=== PATIENT | female | born 2000 | race African-American/Black ===

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

== ENCOUNTER 2024-01-12 01:58 | Inpatient (IN) ==
[2024-01-12] MEDS ORDERED: ACETAMINOPHEN 325 MG TAB PO PRN (02:13)
[2024-01-12] MEDS ORDERED: OXYTOCIN 30 UNITS/NSS 30 UNITS/500 ML BAG IV PRN (02:13)
[2024-01-12] MEDS ORDERED: LIDOCAINE 1% LOCAL 20 ML VIAL INFIL PRN (02:13)
--- NOTE | 2024-01-12 02:38 | History & Physical Report ---
Date of Service January 12, 2024 Assessment & Plan (1) Spontaneous rupture of amniotic membranes: Plan: 23-year-old G1, P0 at 40 weeks and 6 days of gestation presenting today with spontaneous rupture of membranes at 00 :45 AM, vital signs stable afebrile, heart rate reassuring, GBS positive, Cervix unfavorable, Having spontaneous regular contractions, Discussed options of expectant management with ambulation, p.o. Cytotec versus IV oxytocin in details. Patient desires to ambulate now and then take Cytotec p.o., Discussed pain management options patient does not want epidural for now but she will decide as labor progresses, All questions were answered (2) Positive GBS test: Admission and Anticipated Discharge Date Admission Date: January 12, 2024 History of Present Illness Chief Complaint: Leakage of fluid Primary Care Provider: Nicolette Trevino MD Patient is a 23-year-old G1, P0 at 40 weeks and 6 days of gestation who woke up at 00 40 5 AM with a gush of leakage of fluid. It has been clear and she has been leaking more over time. She denies vaginal bleeding, contractions, abdominal pain, fever chills, nausea vomiting. She reports good movements. She has been feeling irregular bruxing contractions but they are not painful. Her has been uncomplicated except GBS positive, had COVID 19 around 35 weeks, recovered well with no complications. Allergies Allergy/AdvReac Type Severity Reaction Status Date / Time No Known Allergies Allergy Unverified 01/12/24 02:31 Home Medications Medication Instructions Recorded Confirmed Type 1 tab PO DAILY 12/01/23 01/12/24 History iron 1 tab PO DAILY 12/01/23 01/12/24 History Patient History Medical History Anemia affecting Surgical History History of kidney surgery Social History Smoking Status: Never smoker Hx Alcohol Use: No Hx Substance Use: No Preferred Language: Eritrean Outplacement Consultant Required: No Beliefs That Will Affect Care: None Current Living Situation: Spouse Feels Safe at Home: 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 of genital herpes, chlamydia, gonorrhea Review of Systems All systems reviewed & are unremarkable except as noted in HPI & below Physical Exam Constitutional: WD/WN, vitals as above well developed, well nourished and comfortable Gastrointestinal (Abdomen): normal bowel sounds, soft, nontender, no hepato splenomegaly ( gravid) Genitourinary: normal external appearance Speculum/Bimanual Exam: normal appearance of the cervix ( grossly leaking amniotic fluid with lanugo) OB Exam Abdomen: + vertex Manual OB Exam: + cervical dilation 1 cm, + cervical effacement 10% and + station -2 ( engaged) Monitoring External Monitor heart rate category 1, toco shows irregular contractions every 2 to 7 minutes, patient does not feel them.
[2024-01-12] MEDS ORDERED: BUTORPHANOL TARTRATE 2 MG/ML VIAL IV PRN (02:46)
[2024-01-12 02:52] LABS: Hematocrit (blood only) 36.1 % (37.0-47.0); Hemoglobin 12.5 g/dl (12.0-16.0); Mean Corpuscular Hgb Conc 34.6 g/dL (32.0-36.0); Mean Corpuscular Volume 86.6 fL (80.0-100.0); Mean Platelet Volume 11.2 fL (9.4-12.4); Platelet Count 207 K/uL (130-400); RDW Coefficient of Variation 13.2 % (11.5-14.5); RDW Standard Deviation 41.6 fL (36.4-46.3); Red Blood Count 4.17 M/uL (4.20-5.40); White Blood Count 11.32 K/ul (4.8-10.8)
[2024-01-12] MEDS: PENICILLIN GK 6 MU in DEXTROSE 5% 250 ML IV STA (03:05)
[2024-01-12] MEDS: LACTATED RINGER'S 1,000 ML IV PRN (03:07)
[2024-01-12] MEDS: miSOPROStoL 50 MCG TAB PO ONE (05:10)
--- OUTSIDE RECORDS SUMMARY | 2024-01-12 07:25 | External Medical Summary | Summary of Care ---
Author Name Unknown Organization [facility] Address [address] [facility] [place] [address] Phone [phone] Care Team Providers Care Merchandise Carrier Name Role Phone Nicolette Trevino MD Primary Care Provider [phone] Reason for Visit * Reason Comments Return Visit Encounter Details Date Type Department Care Team (Late st Contact Info) Description 12/26/2023 1:15 PM EDT Office Visit Gynecology/Obstetric s Dudley Machado [address] [place] [address] Ruthy Zaldivar PA-C [address] [place] [id number] Supervision of normal first , antepartum*; Antepartum anemia complicating Allergies No known active allergiesdocumented as of this encounter (statuses as of 12/26/2023) Medications Medication Sig Dispensed Refills Start Date End Date Status 27-0.8 MG Oral Tablet Take 1 Tablet by mouth daily at noon. Active Ferrous Sulfate 325 (65 Fe) MG Oral Tablet (Feosol)Indications:An tepartum anemia complicating Take 1 Tablet by mouth every evening. 60 Tablet 1 10/19/2023 Active documented as of this encounter (statuses as of 12/26/2023) Active Problems Problem Noted Date Diagnosed Date Antepartum anemia complicating 024 Overview: Hgb 11.2, Ferritin 16 at 28 weeks Ferrous sulfate 325 mg daily started Supervision of normal first , antepartu m 05/26/2023 Other constipation 08/13/2022 Family history of Down syndrome 02/03/2022 Overview: sister History of nephrotic syndrome Overview: Bx Age 10, follow [facility] Dr. Elkins-Lady and Dr. Irwin-remission since 2013 Estimated Date of Delivery Comme nts Yes 01/06/2024 Based on Ultraso und documented as of this encounter (statuses as of 12/26/2023) Resolved Problems Problem Noted Date Diagnosed Date Resolved Date Oral contraceptive use 02/21/201806/23 documented as of this encounter (statuses as of 12/26/2023) Immunizations Name Administration Dates Next Due COVID-19 mRNA, LNP-s, No Pre serve, 2-Dose Series (Moderna) 10/24/2020,09/27/2020 DTaP Dipth/Tet/Acell Pertussis (Infanrix), Peds 01/17/2004,01/16/2001,1999,09/06,1999 HIB PRP-T, 4 Dose, PF, IM (Hiberix) 09/18,1999,1999,07/08 HPV Vaccine, 9-Valent 05/03/2018,09/12/2017,06/21 Hepatitis B, 0-19 yrs 03/11/2000,1999,09/18 IPV - Polio Virus Vaccine (Inact) 2003,1999,1999,07/08 MMR - Measles/Mumps/Rubella Vaccine 01/17/2004,1 1999 Meningococcal Conjugate Vacc ine (Menactra/Menveo) 05/27/2016 Pneumococcal Conjugate Vacc, 13 Valent (Prevnar) 05/06/2014,10/06/2000 Pneumococcal Polysaccharide PPV23 (Pneumovax) 07/08/2014 Seasonal Influenza Virus Vac cine, Unspecified Formulation 03/23/2018,04/25/2017,05/27/2016,05/06 Seasonal Influenza, PF, 6 M & above, IM , (FluLaval or Fluzone) 05/26/2023,04/14/2021,04/25/2019,03/23,04/25/2017 Seasonal Influenza, Quadriva lent, No Preserve, IM 05/27/2016 Seasonal Influenza, Split, I IV3, With Preserve, Inj 05/06/2014 TDAP (age 10 and older)(Boostrix) 10/17/2023, Varicella Vaccine (Chicken Pox) 05/05/2015,06/06 documented as of this encounter Social History Tobacco Use Types Packs/Day Years Used Date Smoking Tobacco: Never Smokeless Tobacco: Never Alcohol Use Standard Drinks/Week Comments No 0 (1 standard drink = 0.6 oz pur e alcohol) denies PHQ-2 Answer Date Recorded PHQ Adult Total Score 0 10/17/2023 Hunger Vital Sign Answer Date Recorded Within the past 12 months, y ou worried that your food would run out before you got the money to buy more. Never true 08/08/19 24 Within the past 12 months, t he food you bought just didn't last and you didn't have money to get more. Never true 08/08/2023 [place] Depression Scale Answer Date Recorded [place] Depression Scale Total 5 10/17/2023 The thought of harming myself has occurred to me . Never 10/17/2023 Childcare Answer Date Recorded Do you feel overwhelmed with taking care of a child, family member or friend? No 08/08/2023 Does your family need help f inding childcare? (Household - for ages 0-17 years) Not on file 08/08/2023 Clothing Answer Date Recorded Have you been unable to get clothing when it was really needed? No 08/08/2023 Is your family able to get c lothes or diapers when needed? (Household - for ages 0-17 years) Not on file 08/08/2023 Personal Safety Answer Date Recorded Do you feel unsafe or have concerns for your saf ety? No 08/08/2023 Do you have concerns for you r family's safety? (Household - for ages 0-17 years) Not on file 08/08/2023 Utilities Answer Date Recorded Do you have trouble paying y our heating, water, or electric bill? No 08/08/2023 Is your family able to pay t he heat, water, or electric bill? (Household - for ages 0-17 years) Not on file 08/08/2023 Does your family have access to good internet? (Household - for ages 0-17 years) Not on file 08/08/2023 Employment Status Answer Date Recorded Are you unemployed or without regular income? No 08/08/2023 Does the household have a re gular source of income? (Household - for ages 0-17 years) Not on file 08/08/2023 Social Connections Answer Date Recorded How often do you feel lonely or isolated from th ose around you? Never 08/08/2023 Financial Resource Strain Answer Date R ecorded Do you have any trouble payi ng for your medications, or do you think you might in the future? No 08/08/2023 Does your family have troubl e paying for medicine? (Household - for ages 0-17 years) Not on file 08/08/2023 Transportation Needs Answer Date Record ed READ ONLY Do you have troubl e getting a ride to medical visits or work? Never True 08/08/2023 Does your family have a hard time getting a ride to doctors visits? (Household - for ages 0-17 years) Not on file 08/08/2023 Has lack of transportation k ept you from medical appointments, meetings, work, or from getting things needed for daily living? Check all that apply. (Adult - for ages 18 years and over) Not on file 08/08/2023 Do you (or your family) have trouble finding or paying for a ride (transportation)? (Household - for ages 0-17 years) Not on file 08/08/2023 Housing Stability Answer Date Recorded Do you currently live in a s helter or have no steady place to sleep at night? No 08/08/2023 READ ONLY Do you think you a re at risk of becoming homeless? No 08/08/2023 Does your family worry about paying for your home or becoming homeless? (Household - for ages 0-17 years) Not on file 0 08/08/2023 Are you homeless or worried that you might be in the future? (Adult - for ages 18 years and over) Not on file Are you (or your family) tereza eless or worried that you might be in the future? (Household - for ages 0-17 years) Not on file Food Insecurity Answer Date Recorded Do you need food for this week? No 08/08/2023 Are you able to get enough f ood for your family? (Household - for ages 0-17 years) Not on file 08/08/2023 Does your family need food t his week? (Household - for ages 0-17 years) Not on file 08/08/2023 Do you always have enough fo od for your family? (Household - for ages 0-17 years) Not on file 08/08/2023 Estimated Date of Delivery Comme nts Yes 01/06/2024 Based on Ultraso und Sex and Gender Information Value Date Recorded Sex Assigned at Female 05/10/2023 10:45 AM EST Gender Identity Female 05/10/2023 10:45 AM EST Sexual Orientation Straight 05/10/2023 10 :45 AM EST Job Start Date Occupation Industry Not on file Not on file Not on file documented as of this encounter Last Filed Vital Signs Vital Sign Reading Time Taken Comments Blood Pressure 104/56 12/26/2023 1:15 PM EDT Pulse - - Temperature - - Respiratory Rate - - Oxygen Saturation - - Inhaled Oxygen Concentration - - Weight 79.8 kg (176 lb) 12/26/2023 1:15 PM EDT Height - - Body Mass Index 32.19 12/19/2023 3:35 PM EDT documented in this encounter Progress Notes * Ruthy Zaldivar PA-C - 12/26/2023 1:25 PM EDT 38w3d Here for acute visit concern for ROM. Was having some BH contractions and menstrual cramping, intermittent without timing, regularity. Got up to use restroom at 1 AM, after doing so felt fluid into underwear. Did not soak through to pants, not wearing pad. Smelled it and did not have odor of urine.Went back to bed, got up to use restroom again at 6 AM and had same clear discharge into underwear after going to restroom. Put pad down and dinora-pad not soaked. Denies VB. Baby is active. No recent intercourse. [place] gush and then trickling. Pelvic exam: External genitalia and vagina anatomy within normal limits, No significant vulvar lesions, white vaginal discharge present, appears physiologic, Cervix normal in appearance without lesions or purulent discharge, cervix visually closed, no pooling at cervical os and no blood in vaginal vault. Nitrazine test negative. No lof with valsalva. ROM plus collected. BME: cervix closed/thick Low suspicion for ROM, ROM plus collected -- negative, pt made aware Pt interested in scheduling postdate IOL, scheduled 01/11 Labor precautions reviewed RTC in 1 week Ruthy Zaldivar PA-C * Sharon Coronel MED ASSIST - 12/26/2023 1:15 PM EDT 38w3d Denies vaginal bleeding + movements + nausea Patient present today to r/o rupture. documented in this encounter Plan of Treatment Upcoming Encounters Date Type Department Care Team (Late st Contact Info) Description 01/06/2024 1:30 PM EDT Office Visit Gynecology/Obstetrics Dud[facility] Machado [address] [place] [address] Saumya Shaikh CRNP [address] [place] [address] Health Maintenance Due Date Last Done Comments Pneumococcal Vaccine: Pediat rics (0 to 5 Years) and At-Risk Patients (6 to 64 Years) (2 of 2 - PPSV23 or PCV20) 07/08/2019 07/08/2014, 05/06/2014, 10/06/2000 COVID-19 Vaccine (4 - 2022-2 4 season) 2023 12/17/2020, 10/24/2020, 09/27/2020 Influenza Vaccine (FLU shot) (#1) 2024 05/26/2023, 04/14/2021, 04/25/2019, Additional history exists Gonorrhea / Chlamydia Screen 05/26/202412/2022, 02/03/2022, 10/16/2020, Additional history exists Depression Screening 10/16/2024 10/17/2023 Pap Smear 01/24/2026 01/24/2023, 01/18, 10/16/2020 DTaP,Tdap,and Td Vaccines (8 - Td or Tdap) 10/16/2033 10/17/2023, 05/05/2015, 01/17/2004, Additional history exists Hepatitis B Vaccine Completed 03/11/2000, 1999, 1999 MENINGOCOCCAL (MENACTRA/MENVEO) Completed 6 HPV (Gardasil) Vaccine Completed 8, 09/12/2017, 07/13/2017 documented as of this encounter Medical Devices Not on filedocumented as of this encounter Procedures Procedure Name Priority Date/Time Associated Diagnosis Comments RUPTURE OF MEMBRANE STAT 12/26/2023 1:36 PM EDT Supervision of normal first , antepartum documented in this encounter Results * RUPTURE OF MEMBRANE (12/26/2023 1:36 PM EDT) Rupture of Membrane Negative Negative 12/26/2023 1:59 PM EDT [facility] 57-10 Swab Specimen from wound / Unknown 12/26/2023 1:36 PM EDT 12/26/2023 1:36 PM EDT Ruthy Zaldivar PA-C LAB FLUID AND STOOL ORDERABLES [facility] [place] [facility] [facility] [place] [id number] documented in this encounter Visit Diagnoses Diagnosis Supervision of normal first , antepartum- Primary Antepartum anemia complicating Anemia, antepartum documented in this encounter Care Teams Merchandise Carrier Relationship Specialty Start Date End Date Nicolette Trevino MD [address] [facility] [place] [id number] PCP - General Internal Medicine 02/21/18 documented as of this encounter
--- OUTSIDE RECORDS SUMMARY | 2024-01-12 07:25 | External Medical Summary | Summary of Care ---
Author Name Unknown Organization [facility] Address [address] [facility] [place] [address] Phone [phone] Care Team Providers Care Weed Control Inspector Name Role Phone Nicolette Trevino MD Primary Care Provider [phone] Reason for Visit * Reason Comments Return Visit Encounter Details Date Type Department Care Team (Late st Contact Info) Description 12/26/2023 1:15 PM EDT Office Visit Gynecology/Obstetric s Dudley Machado [address] [place] [address] Ruthy Zaldivar PA-C [address] [place] [address] Supervision of normal first , antepartum*; Antepartum [...] nephrotic syndrome Overview: Bx Age 10, follow [facility] [place] Elkins-Lady and Dr. Irwin-remission since 2013 [...] money to get more. Never true 08/08/2023 [place] Depression Scale Answer Date Recorded [place] Depression Scale Total 5 10/17/2023 The thought [...] VB. Baby is active. No recent intercourse. [place] gush and then trickling. Pelvic exam: External [...] Dudley Machado [address] [place] [id number] Saumya Shaikh CRNP [address] [place] [address] Health Maintenance Due Date Last Done Comments [...] STOOL ORDERABLES LAB[facility]AT[facility] [place] [facility] [address] [facility] [place] [address] documented in this encounter Visit Diagnoses Diagnosis Supervision of normal first , antepartum- Primary Antepartum anemia complicating Anemia, antepartum documented in this encounter Care Teams Weed Control Inspector Relationship Specialty Start Date End Date Nicolette Trevino MD [address] [facility] [place] [address] PCP - General Internal Medicine 02/21/18 documented as of this encounter
--- OUTSIDE RECORDS SUMMARY | 2024-01-12 07:25 | External Medical Summary | Summary of Care ---
Author Name Unknown Organization [facility] Address [address] [facility] [place] [address] Phone [phone] Care Team Providers Care Power Shear Operator Name Role Phone Nicolette Trevino MD Primary Care Provider [phone] Reason for Visit * Reason Comments Return Visit Encounter Details Date Type Department Care Team (Late st Contact Info) Description 01/06/2024 1:30 PM EDT Office Visit Gynecology/Obstetric s Dudley Machado [address] [place] [address] Saumya Shaikh CRNP [address] [place] [address] Supervision of normal first , antepartum*; Antepartum anemia complicating Allergies No known active allergiesdocumented as of this encounter (statuses as of 01/06/2024) Medications Medication Sig Dispensed Refills Start Date End Date Status 27-0.8 MG Oral Tablet Take 1 Tablet by mouth daily at noon. Active Ferrous Sulfate 325 (65 Fe) MG Oral Tablet (Feosol)Indications:An tepartum anemia complicating Take 1 Tablet by mouth every evening. 60 Tablet 1 10/19/2023 Active documented as of this encounter (statuses as of 01/06/2024) Active Problems Problem Noted Date Diagnosed Date Antepartum anemia complicating 024 Overview: Hgb 11.2, Ferritin 16 at 28 weeks Ferrous sulfate 325 mg daily started Supervision of normal first , antepartu m 05/26/2023 Other constipation 08/13/2022 Family history of Down syndrome 02/03/2022 Overview: sister History of nephrotic syndrome Overview: Bx Age 10, [place] [facility] [place] Elkins[place]Lady and Dr. Irwin-remission since 2013 Estimated Date of Delivery Comme nts Yes 01/06/2024 Based on Ultraso und documented as of this encounter (statuses as of 01/06/2024) Resolved Problems Problem Noted Date Diagnosed Date Resolved Date Oral contraceptive use 02/21/201806/23 documented as of this encounter (statuses as of 01/06/2024) Immunizations Name Administration Dates Next Due COVID-19 mRNA, LNP-s, No Pre serve, 2-Dose Series (Moderna) 10/24/2020,09/27/2020 DTaP Dipth/Tet/Acell Pertussis (Infanrix), Peds 01/17/2004,01/16/2001,1999,09/06,1999 HIB PRP-T, 4 Dose, PF, IM (H iberix, ActHib) 10/06/2000,1999,1999,07/08 HPV Vaccine, 9-Valent 05/03/2018,09/12/2017,06/21 Hepatitis B, 0-19 [...] money to get more. Never true 08/08/2023 [place] Depression Scale Answer Date Recorded [place] Depression Scale Total 5 10/17/2023 The thought [...] Sign Reading Time Taken Comments Blood Pressure 102/60 01/06/2024 1:30 PM EDT Pulse - - Temperature - - Respiratory Rate - - Oxygen Saturation - - Inhaled Oxygen Concentration - - Weight 79.8 kg (176 lb) 01/06/2024 1:30 PM EDT Height 157.5 cm (5' 2") 01/06/2024 1:30 PM EDT Body Mass Index 32.19 01/06/2024 1:30 PM EDT documented in this encounter Progress Notes * Saumya Shaikh CRNP - 01/06/2024 1:37 PM EDT 40w Having irregular contractions for the past 2 days. No bleeding, LOF. Baby is active. IOL 01/11. Heating Fixture Tender Documentation Provider requested fish icer. Name of fish icer: LESLIE Watkins * Anabel Murillo LPN - 01/06/2024 1:30 PM EDT 40w0d Would like cervix check documented in this encounter Plan of Treatment Health Maintenance Due Date Last Done Comments [...] Not on filedocumented as of this encounter Visit Diagnoses Diagnosis Supervision of normal first , antepartum- Primary Antepartum anemia complicating Anemia, antepartum documented in this encounter Care Teams Power Shear Operator Relationship Specialty Start Date End Date Nicolette Trevino MD [address] [place] [address] PCP - General Internal Medicine 02/21/18 documented as of this encounter
--- OUTSIDE RECORDS SUMMARY | 2024-01-12 07:26 | External Medical Summary ---
Author Name Unknown Address Unknown Organization [id number]:[facility] [address] [place] [id number] Laboratory Report Ordering Provider Test Date Status DULCE ADAMS 12/26/2023 13:36:28 Final Observation Date Value Abnormality Reference (Units ) Status Premature Rupture Membrane risk 12/26/2023 13:36:28 Negative Negative Final Performing Location [facility] [address] [place] [id number]
--- OUTSIDE RECORDS SUMMARY | 2024-01-12 07:26 | External Medical Summary | Summary of Care ---
Author Name Unknown Organization [facility] Address [address] [place] [facility] [place] [facility] [place] [address] Phone [phone] Care Team Providers Care Catalyst Impregnator Name Role Phone Nicolette Trevino MD Primary Care Provider [phone] Reason for Visit * Reason Comments Return Visit Encounter Details Date Type Department Care Team (Late st Contact Info) Description 12/12/2023 1:30 PM EDT Office Visit Gynecology/Obstetric s [facility] [address] [facility] [place] [address] Maryan Stanley CNM [address] [facility] [place] [phone] Supervision of normal first , antepartum*; Antepartum anemia complicating Allergies No known active allergiesdocumented as of this encounter (statuses as of 12/12/2023) Medications Medication Sig Dispensed Refills Start Date End Date Status 27-0.8 MG Oral Tablet Take 1 Tablet by mouth daily at noon. Active Ferrous Sulfate 325 (65 Fe) MG Oral Tablet (Feosol)Indications:An tepartum anemia complicating Take 1 Tablet by mouth every evening. 60 Tablet 1 10/19/2023 Active documented as of this encounter (statuses as of 12/12/2023) Active Problems Problem Noted Date Diagnosed Date Antepartum anemia complicating 024 Overview: Hgb 11.2, Ferritin 16 at 28 weeks Ferrous sulfate 325 mg daily started Supervision of normal first , antepartu m 05/26/2023 Other constipation 08/13/2022 Family history of Down syndrome 02/03/2022 Overview: sister History of nephrotic syndrome Overview: Bx Age 10, follow [facility] [place]. Elkins-Lady and Dr. Irwin-remission since 2013 Estimated Date of Delivery Comme nts Yes 01/06/2024 Based on Ultraso und documented as of this encounter (statuses as of 12/12/2023) Resolved Problems Problem Noted Date Diagnosed Date Resolved Date Oral contraceptive use 02/21/201806/23 documented as of this encounter (statuses as of 12/12/2023) Immunizations Name Administration Dates Next Due COVID-19 [...] money to get more. Never true 08/08/2023 [place] Depression Scale Answer Date Recorded [place] Depression Scale Total 5 10/17/2023 The thought [...] Sign Reading Time Taken Comments Blood Pressure 98/58 12/12/2023 12:33 PM EDT Pulse - - Temperature - - Respiratory Rate - - Oxygen Saturation - - Inhaled Oxygen Concentration - - Weight 76.2 kg (168 lb) 12/12/2023 12:33 PM EDT Height - - Body Mass Index 30.73 11/28/2023 11:41 AM EDT documented in this encounter Progress Notes * Maryan Stanley CNM - 12/12/2023 1:30 PM EDT Katya Kruse is a 23 year old female here for her routine OB appointment at 36w3d Her Estimated Date of Delivery: 01/06/24 REVIEW OF SYSTEMS: She affirms movement. Denies vaginal bleeding, LOF, contractions, N/V, headaches Some BH contractions, nothing regular PHYSICAL EXAM: Filed Vitals: 12/12/23 1233 BP: 98/58 Weight: 76.2 kg (168 lb) +FHT 140s Fundal height 37cm ASSESSMENT/PLAN: No diagnosis found. Supervision of - GBS swab collected today Ophthalmic Surgeon Documentation Provider requested key attendant. Name of key attendant: Luisito Mcgregor CNM - hydration encouraged - labor precautions and kick counts reviewed - RTO in 1 week Maryan Stanley CNM * Rosa Monet LPN - 12/12/2023 1:07 PM EDT 36w3d Denies vaginal bleeding/rom + movement Michael salazar US today- vertex No new concerns documented in this encounter Plan of Treatment Upcoming Encounters Date Type Department Care Team (Late st Contact Info) Description 12/19/2023 3:45 PM EDT Office Visit Gynecology/Obstetrics Garciasor[facility] Machado [address] [place] [address] Ruthy Zaldivar PA-C [address] [place] [address] Pending Results Name Type Priority Associated Diagnoses Date /Time GROUP B STREP CULTURE/PCR Lab Routine Supervision of normal first , antepartum 12/12/2023 2:21 PM EDT Health Maintenance Due Date Last Done Comments Pneumococcal Vaccine: Pediat rics (0 to 5 Years) and At-Risk Patients (6 to 64 Years) (2 of 2 - PPSV23 or PCV20) 07/08/2019 07/08/2014, 05/06/2014, 10/06/2000 COVID-19 Vaccine (3 - 2022-2 4 season) 2023 10/24/2020, 09/27/2020 Gonorrhea / Chlamydia Screen 05/26/202412/2022, 02/03/2022, 10/16/2020, Additional history exists Depression Screening 10/16/2024 10/17/2023 Pap Smear 01/24/2026 01/24/2023, 01/18, 10/16/2020 DTaP,Tdap,and Td Vaccines (8 - Td or Tdap) 10/16/2033 10/17/2023, 05/05/2015, 01/17/2004, Additional history exists Hepatitis B Completed 03/11/2000, 10/18, 1999 MENINGOCOCCAL (MENACTRA/MENVEO) Completed 6 GARDASIL-HPV IMMUNIZATION SERIES Completed 05/03/2018, 09/12/2017, 07/13/2017 Influenza Vaccine (FLU shot) Completed 12/2022, 04/14/2021, 04/25/2019, Additional history exists documented as of this encounter Medical Devices Not on filedocumented as of this encounter Visit Diagnoses Diagnosis Supervision of normal first , antepartum- Primary Antepartum anemia complicating Anemia, antepartum documented in this encounter Care Teams Catalyst Impregnator Relationship Specialty Start Date End Date Nicolette Trevino MD [address] [place] [address] PCP - General Internal Medicine 02/21/18 documented as of this encounter
--- OUTSIDE RECORDS SUMMARY | 2024-01-12 07:26 | External Medical Summary | Summary of Care ---
Author Name Unknown Organization [facility] Address [address] [place] [place] [facility] [place] [address] Phone [phone] Care Team Providers Care Pole Lift Operator Name Role Phone Nicolette Trevino MD Primary Care Provider [phone] Reason for Visit * Reason Comments Return Visit Encounter Details Date Type Department Care Team (Late st Contact Info) Description 12/12/2023 1:30 PM EDT Office Visit Gynecology/Obstetric s [facility] [address] [facility] [place] [address] Maryan Stanley CNM [address] [facility] [place] [phone] Supervision of normal first , antepartum*; Antepartum [...] nephrotic syndrome Overview: Bx Age 10, follow [facility] [place]. Elkins-Lady and Dr. Irwin-remission since 2013 [...] money to get more. Never true 08/08/2023 [place] Depression Scale Answer Date Recorded [place] Depression Scale Total 5 10/17/2023 The thought [...] Supervision of - GBS swab collected today Wrist Hemmer Documentation Provider requested relay motorman. Name of relay motorman: Luisito Mcgregor CNM - hydration encouraged - [...] 12/19/2023 3:45 PM EDT Office Visit Gynecology/Obstetrics Dudley Machado [address] [place] [address] Ruthy Zaldviar PA-C [address] [place] [address] Scheduled Orders Name Type Priority Associated Diagnoses Orde r Schedule GROUP B STREP CULTURE/PCR Lab Routine Supervision of normal first , antepartum Ordered: 12/12/2023 Health Maintenance Due Date Last Done Comments [...] Completed 03/11/2000, 10/18, 1999 MENINGOCOCCAL (MENACTRA/MENVEO) Completed GARDASIL-HPV IMMUNIZATION SERIES Completed 05/03/2018, 09/12/2017, 07/13/2017 Influenza Vaccine (FLU shot) Completed 12/2022, 04/14/2021, 04/25/2019, Additional history exists documented as of this encounter Medical Devices Not on filedocumented as of this encounter Visit Diagnoses Diagnosis Supervision of normal first , antepartum- Primary Antepartum anemia complicating Anemia, antepartum documented in this encounter Care Teams Pole Lift Operator Relationship Specialty Start Date End Date Nicolette Trevino MD [address] [place] [address] PCP - General Internal Medicine 02/21/18 documented as of this encounter
--- OUTSIDE RECORDS SUMMARY | 2024-01-12 07:26 | External Medical Summary ---
Author Name Unknown Address Unknown Organization K01:[facility] [place] - [address] [place] [address] Laboratory Report Ordering Provider Test Date Status ROSAURA HEDRICK 12/12/2023 14:21:57 Final Observation Date Value Abnormality Reference (Units ) Status Streptococcus agalactiae DNA [Presence] in Specimen by MERI with probe detection 12/12/2023 14:21:57 Positive Abnormal Negative Final Group B Streptococcus detect ed by culture-enhanced PCR (amplified probe). GBS GBSCT - [facility] 12/12/2023 14:21:57 23.4 Final GBS SPCCT - [facility] 12/12/2023 14:21:57 0.0 Final Performing Location [facility] [place] - [address] [place] [address]
--- OUTSIDE RECORDS SUMMARY | 2024-01-12 07:26 | External Medical Summary | Summary of Care ---
Author Name Unknown Organization [facility] Address [address] [facility] [place] [address] Phone [phone] Care Team Providers Care Lithographic Retoucher Apprentice Name Role Phone Nicolette Trevino MD Primary Care Provider [phone] Reason for Visit * Reason Comments Return Visit Encounter Details Date Type Department Care Team (Late st Contact Info) Description 12/19/2023 3:45 PM EDT Office Visit Gynecology/Obstetric s Dudley Machado [address] [place] [address] Ruthy Zaldivar PA-C [address] [place] [address] Supervision of normal first , antepartum*; Antepartum anemia complicating Allergies No known active allergiesdocumented as of this encounter (statuses as of 12/19/2023) Medications Medication Sig Dispensed Refills Start Date End Date Status 27-0.8 MG Oral Tablet Take 1 Tablet by mouth daily at noon. Active Ferrous Sulfate 325 (65 Fe) MG Oral Tablet (Feosol)Indications:An tepartum anemia complicating Take 1 Tablet by mouth every evening. 60 Tablet 1 10/19/2023 Active documented as of this encounter (statuses as of 12/19/2023) Active Problems Problem Noted Date Diagnosed Date Antepartum anemia complicating 024 Overview: Hgb 11.2, Ferritin 16 at 28 weeks Ferrous sulfate 325 mg daily started Supervision of normal first , antepartu m 05/26/2023 Other constipation 08/13/2022 Family history of Down syndrome 02/03/2022 Overview: sister History of nephrotic syndrome Overview: Bx Age 10, follow [facility] [place] Dr. Elkins-Lady and Dr. Irwin-remission since 2013 Estimated Date of Delivery Comme nts Yes 01/06/2024 Based on Ultraso und documented as of this encounter (statuses as of 12/19/2023) Resolved Problems Problem Noted Date Diagnosed Date Resolved Date Oral contraceptive use 02/21/201806/23 documented as of this encounter (statuses as of 12/19/2023) Immunizations Name Administration Dates Next Due COVID-19 [...] money to get more. Never true 08/08/2023 [place] Depression Scale Answer Date Recorded [place] Depression Scale Total 5 10/17/2023 The thought [...] Sign Reading Time Taken Comments Blood Pressure 108/64 12/19/2023 3:35 PM EDT Pulse - - Temperature - - Respiratory Rate - - Oxygen Saturation - - Inhaled Oxygen Concentration - - Weight 78.5 kg (173 lb) 12/19/2023 3:35 PM EDT Height 157.5 cm (5' 2") 12/19/2023 3:35 PM EDT Body Mass Index 31.64 12/19/2023 3:35 PM EDT documented in this encounter Progress Notes * Ruthy Zaldivar PA-C - 12/19/2023 4:00 PM EDT 37w3d Without complaints. Getting excited to meet baby! Denies LOF, VB, contractions. Baby is active. Cephalic by ultrasound last week. Reviewed GBS positive and treatment upon labor/delivery. Labor precautions reviewed. Ruthy Zaldivar PA-C documented in this encounter Nursing Notes * Codie Charlton LPN - 12/19/2023 3:51 PM EDT 37w3d Denies concerns documented in this encounter Plan of [...] GARDASIL-HPV IMMUNIZATION SERIES Completed 05/03/2018, 09/12/2017, 07/13/2017 documented as of this encounter Medical Devices Not on filedocumented as of this encounter Visit Diagnoses Diagnosis Supervision of normal first , antepartum- Primary Antepartum anemia complicating Anemia, antepartum documented in this encounter Care Teams Lithographic Retoucher Apprentice Relationship Specialty Start Date End Date Nicolette Trevino MD [address] [place], [place] [address] PCP - General Internal Medicine 02/21/18 documented as of this encounter
[2024-01-12] MEDS: PENICILLIN GK 3 MU in DEXTROSE 5% 100 ML IV PRN (07:34)
--- NOTE | 2024-01-12 09:04 | Labor Progress Brief Note ---
Date of Service January 12, 2024 Assessment & Plan Admission and Anticipated Discharge Date Admission Date: January 12, 2024 Physical Exam Genitourinary: Manual OB Exam: + cervical dilation 1 cm, + cervical effacement 50% and + station -2 OB Exam Monitor Tracing: + external FHT monitor used, + external uterine monitor used, + category I and + normal FHT variability cervix firm/posterior Will give another Cytotec for ripening Results & Data Vital Signs (Past 12 Hours) Vital Signs Temp Pulse Resp BP 01/12/24 07:15 36.7 C 53 L 20 101/64 01/12/24 05:10 36.7 C 01/12/24 02:36 65 108/64 01/12/24 02:32 36.7 C 18
[2024-01-12] MEDS: miSOPROStoL 50 MCG TAB PO STA (09:13)
--- NOTE | 2024-01-12 13:52 | Labor Progress Brief Note ---
Date of Service January 12, 2024 Assessment & Plan Admission and Anticipated Discharge Date Admission Date: January 12, 2024 Physical Exam Genitourinary: Manual OB Exam: + cervical dilation 1 cm and 2 cm, + cervical effacement 70%, + station -2 and + amniotic fluid clear OB Exam Monitor Tracing: + external FHT monitor used, + external uterine monitor used, + category I and + normal FHT variability AROM of forebag with Amni-hook clear fluid Will start Oxytocin to augment contractions Results & Data Vital Signs (Past 12 Hours) Vital Signs Temp Pulse Resp BP 01/12/24 13:45 67 118/57 L 01/12/24 12:33 36.3 C L 01/12/24 10:50 36.9 C 59 L 16 110/55 L 01/12/24 07:15 36.7 C 53 L 20 101/64 01/12/24 05:10 36.7 C 01/12/24 02:36 65 108/64 01/12/24 02:32 36.7 C 18
[2024-01-12] MEDS: OXYTOCIN 30 UNITS/NSS 30 UNITS/500 ML BAG IV PRN (14:06)
[2024-01-12] MEDS: BUPIVACAINE 0.25% PF 30 ML VIAL ONE (16:55)
[2024-01-12] MEDS: SODIUM CHLORIDE 0.9% PF INJ 10 ML VIAL ONE (16:55)
[2024-01-12] MEDS: LIDOCAINE 2%/EPINEPHRINE 1:200,000 20 ML PF ONE (16:55)
[2024-01-12] MEDS: fentANYL 2 MCG/ML BUPIVacaine 0.125%-NSS 100ML BAG ONE (17:01)
[2024-01-12] MEDS ORDERED: diphenhydrAMINE 50 MG/ML VIAL IV PRN (17:09)
[2024-01-12] MEDS ORDERED: ROPIVACAINE 0.5% PF 5 MG/ML 20 ML VIAL EPI PRN (17:09)
[2024-01-12] MEDS ORDERED: ONDANSETRON INJ 2 MG/ML 2 ML VIAL IV PRN (17:09)
[2024-01-12] MEDS ORDERED: BUPIVACAINE 0.25% PF 30 ML VIAL EPI PRN (17:09)
[2024-01-12] MEDS ORDERED: ePHEDrine sulfate 50 MG/ML AMP IV PRN (17:09)
[2024-01-12] MEDS ORDERED: SODIUM CHLORIDE 0.9% PF INJ 10 ML VIAL EPI PRN (17:09)
[2024-01-12] MEDS ORDERED: LIDOCAINE 2% MPF LOCAL 5 ML VIAL EPI PRN (17:09)
[2024-01-12] MEDS ORDERED: NALOXONE HCL 1 MG in SODIUM CHLORIDE 0.9% 1,000 ML IV PRN (17:09)
[2024-01-12] MEDS ORDERED: fentaNYL citrate PF 100 MCG/2 ML VIAL EPI PRN (17:09)
[2024-01-12] MEDS ORDERED: NALBUPHINE HCL 5 MG in SYRINGE 0 ML IV PRN (17:09)
[2024-01-12] MEDS ORDERED: PROMETHAZINE HCL 6.25 MG in SODIUM CHLORIDE 0.9% 50 ML IV PRN (17:09)
[2024-01-12] MEDS ORDERED: NALOXONE HCL 0.4 MG/1 ML VIAL/CARP IV PRN (17:09)
--- NOTE | 2024-01-12 17:09 | Anesthesiology Consultation ---
Date of Service January 12, 2024 Assessment & Plan Chart Review Chart Review: Patient NOT seen in Pre Admission Testing and Acceptable Risk for Labor Epidural Consults Requested none ASA ASA2 Proposed Anesthesia Anesthesia Type: Labor Epidural Risk / Benefits Reviewed With: PT / POA / Parent / Guardian, Accepts Plan and Informed Consent Obtained History Height/Weight Height: 5 ft 2 in Weight: 79.832 kg Allergies Allergy/AdvReac Type Severity Reaction Status Date / Time No Known Allergies Allergy Unverified 01/12/24 02:31 Medications Home Medications Medication Instructions Recorded Confirmed Last Taken 1 tab PO DAILY 12/01/23 01/12/24 11/30/23 19:00 iron 1 tab PO DAILY 12/01/23 01/12/24 11/30/23 09:00 Active Medications Generic Name Dose Route Start Last Admin Trade Name Freq PRN Reason Stop Dose Admin Lactated Ringer's 1,000 mls @ 150 mls/hr 01/12/24 02:13 01/12/24 16:54 Lr IV 01/14/24 02:12 125 mls/hr .Q6H40M PRN Infusion L&D Protocol Protocol Penicillin G Potassium 3 mu/ 106 mls @ 100 mls/hr 01/12/24 05:16 01/12/24 15:09 Dextrose IV 01/22/24 05:15 100 mls/hr Q4H PRN Administration GBS(+) Until Delivery Oxytocin 30 units in 500 mls @ 5 mls/hr 01/12/24 13:52 01/12/24 15:15 Pitocin 30 Units/Nss IV 01/14/24 13:51 0.3 units/hr .Q24H PRN 5 mls/hr Labor Induction/Augmentation Titration Protocol 0.3 UNITS/HR Past Medical History Medical History Anemia affecting Exercise / Class Metabolic Activity II 4-5 Yardwork/Stairs/Walk up hill Past Surgical History Surgical History History of kidney surgery Past Anesthesia History No Hx of Anesthesia Complications and No Family Hx of Anesthesia Complications History of PONV No Hx of PONV and No Hx of Motion Sickness Social History Smoking Status: Never smoker Hx Alcohol Use: No Hx Substance Use: No substance use type: does not use Physical Exam Vital Signs Last Vital Signs Temp 36.8 C 01/12/24 15:30 Pulse 59 L 01/12/24 17:05 Resp 20 01/12/24 15:30 BP 109/59 L 01/12/24 17:04 Pulse Ox 99 01/12/24 17:05 ENMT Mouth: no dentition abnormality Thyromental Distance: > or= 3.5 Finger Breadths Mallampati Class: II Neck normal visual inspection Respiratory normal respiratory effort Auscultation: lungs clear to auscultation bilaterally Cardiovascular Rate/Rhythm: regular rate and regular rhythm Psychiatric Orientation: alert Testing Laboratory Results 01/12/24 02:32
[2024-01-12] MEDS: fentaNYL citrate PF 100 MCG/2 ML VIAL ONE (17:16)
--- NOTE | 2024-01-12 17:27 | Labor Progress Brief Note ---
Date of Service January 12, 2024 Assessment & Plan Admission and Anticipated Discharge Date Admission Date: January 12, 2024 Physical Exam Genitourinary: Manual OB Exam: + cervical dilation 2 cm and 3 cm, + cervical effacement 70%, + station -2 and + amniotic fluid clear OB Exam Monitor Tracing: + external FHT monitor used, + external uterine monitor used, + category I and + normal FHT variability Results & Data Vital Signs (Past 12 Hours) Vital Signs Temp Pulse Resp BP Pulse Ox 01/12/24 17:25 62 100 01/12/24 17:20 64 100 01/12/24 17:17 60 124/54 L 01/12/24 17:15 67 100 01/12/24 17:10 58 L 99 01/12/24 17:05 59 L 99 01/12/24 17:04 60 109/59 L 01/12/24 17:02 54 L 109/56 L 01/12/24 17:00 62 110/56 L 99 01/12/24 16:59 59 L 129/68 01/12/24 16:55 61 100 01/12/24 16:50 61 100 01/12/24 16:45 64 100 01/12/24 16:44 76 122/61 01/12/24 15:30 36.8 C 20 01/12/24 15:14 71 111/59 L 01/12/24 14:59 57 L 125/74 01/12/24 14:45 64 116/64 01/12/24 14:28 61 105/63 01/12/24 14:13 36.8 C 74 20 116/73 01/12/24 13:45 67 118/57 L 01/12/24 12:33 36.3 C L 01/12/24 10:50 36.9 C 59 L 16 110/55 L 01/12/24 07:15 36.7 C 53 L 20 101/64
[2024-01-13] MEDS: fentANYL 2 MCG/ML BUPIVacaine 0.125%-NSS 100ML BAG EPI PRN (02:43)
[2024-01-13] MEDS: CALCIUM CARBONATE 500 MG CHEWABLE TAB PO PRN (03:07)
--- NOTE | 2024-01-13 07:40 | Obstetrical Progress Note ---
Date of Service January 13, 2024 Assessment & Plan Admission and Anticipated Discharge Date Admission Date: January 12, 2024 Subjective Patient is seen and examined Her cervix has not changed per her night nurse She feels well no complaints VSS Afebrile VE; 4-5 cm/ 70%/ -1, coned head, IUPC is placed FHR categ I on IV PCN for GBS Prolonged ROM Will add Clindamycin Continue to monitor closely Increase Oxytocin per contractions pattern Results & Data Vital Signs (Past 12 Hours) Vital Signs Temp Pulse Resp BP Pulse Ox 01/13/24 07:36 63 100 01/13/24 07:31 63 99 01/13/24 07:26 63 99 01/13/24 07:23 61 103/55 L 01/13/24 07:21 64 99 01/13/24 07:16 67 98 01/13/24 07:11 61 100 01/13/24 07:09 36.9 C 67 16 105/54 L 01/13/24 07:06 69 95 01/13/24 07:01 58 L 97 01/13/24 06:56 63 97 01/13/24 06:53 57 L 98/57 L 01/13/24 06:51 60 97 01/13/24 06:46 59 L 99 01/13/24 06:41 60 96 01/13/24 06:39 56 L 101/59 L 01/13/24 06:36 66 98 01/13/24 06:31 58 L 97 01/13/24 06:26 59 L 98 01/13/24 06:23 60 107/59 L 01/13/24 06:21 61 98 01/13/24 06:16 60 97 01/13/24 06:11 59 L 97 01/13/24 06:09 60 102/55 L 01/13/24 06:06 57 L 98 01/13/24 06:01 58 L 98 01/13/24 05:56 80 100 01/13/24 05:54 64 116/77 01/13/24 05:51 81 96 01/13/24 05:46 69 98 01/13/24 05:41 62 97 01/13/24 05:39 60 121/64 01/13/24 05:36 70 98 01/13/24 05:31 69 98 01/13/24 05:26 63 97 01/13/24 05:23 70 120/73 01/13/24 05:21 70 98 01/13/24 05:16 71 98 01/13/24 05:11 71 99 01/13/24 05:10 18 01/13/24 05:10 36.9 C 18 01/13/24 05:09 82 133/74 01/13/24 05:06 90 99 01/13/24 05:01 68 98 01/13/24 04:56 62 97 01/13/24 04:55 69 125/74 01/13/24 04:51 60 97 01/13/24 04:46 59 L 98 01/13/24 04:43 65 91 01/13/24 04:41 65 99 01/13/24 04:39 58 L 122/73 01/13/24 04:36 62 96 01/13/24 04:31 57 L 98 01/13/24 04:30 18 01/13/24 04:30 18 01/13/24 04:26 58 L 98 01/13/24 04:23 61 124/75 01/13/24 04:21 60 98 01/13/24 04:16 60 99 01/13/24 04:11 59 L 97 01/13/24 04:08 58 L 120/72 01/13/24 04:06 74 98 01/13/24 04:01 70 99 01/13/24 04:00 64 18 91 01/13/24 03:56 59 L 100 01/13/24 03:53 59 L 113/68 01/13/24 03:51 70 99 01/13/24 03:46 70 99 01/13/24 03:41 72 99 01/13/24 03:38 76 121/72 01/13/24 03:36 74 100 01/13/24 03:32 91 H 93 01/13/24 03:31 93 H 97 01/13/24 03:26 87 100 01/13/24 03:25 69 121/73 01/13/24 03:21 68 99 01/13/24 03:16 63 100 01/13/24 03:11 76 98 01/13/24 03:09 18 01/13/24 03:09 36.8 C 18 01/13/24 03:08 112 H 133/75 01/13/24 03:06 125 H 100 07/26/24 03:01 70 98 01/13/24 02:56 63 99 01/13/24 02:53 63 114/73 01/13/24 02:51 64 99 01/13/24 02:46 63 100 01/13/24 02:41 100 01/13/24 02:41 63 01/13/24 02:41 66 94 01/13/24 02:39 58 L 123/68 01/13/24 02:36 80 100 01/13/24 02:31 69 99 01/13/24 02:26 69 100 01/13/24 02:24 72 110/63 01/13/24 02:21 66 100 01/13/24 02:16 68 100 01/13/24 02:11 79 99 01/13/24 02:10 93 H 119/77 01/13/24 02:06 71 100 01/13/24 02:01 89 110/65 99 01/13/24 02:00 76 92 01/13/24 01:56 72 100 01/13/24 01:53 66 94 01/13/24 01:51 54 L 97 01/13/24 01:46 56 L 97 01/13/24 01:41 57 L 97 01/13/24 01:38 54 L 101/59 L 01/13/24 01:36 59 L 97 01/13/24 01:31 57 L 97 01/13/24 01:26 56 L 98 01/13/24 01:23 54 L 107/57 L 01/13/24 01:21 60 97 01/13/24 01:15 56 L 98 01/13/24 01:10 56 L 98 01/13/24 01:08 54 L 109/56 L 01/13/24 01:05 69 98 01/13/24 01:03 18 01/13/24 01:03 36.8 C 18 01/13/24 01:00 64 96 01/13/24 00:55 58 L 97 01/13/24 00:53 70 102/55 L 01/13/24 00:50 56 L 97 01/13/24 00:45 59 L 97 01/13/24 00:40 60 96 01/13/24 00:39 55 L 96/53 L 01/13/24 00:35 63 96 01/13/24 00:30 62 96 01/13/24 00:25 63 96 01/13/24 00:23 56 L 107/57 L 01/13/24 00:20 75 93 01/13/24 00:19 73 93 01/13/24 00:15 61 96 01/13/24 00:10 65 96 01/13/24 00:09 55 L 100/55 L 01/13/24 00:05 61 96 01/13/24 00:00 64 96 01/12/24 23:55 63 96 01/12/24 23:54 63 116/61 01/12/24 23:50 62 96 01/12/24 23:45 56 L 96 01/12/24 23:40 56 L 96 01/12/24 23:38 72 106/63 01/12/24 23:35 55 L 96 01/12/24 23:30 58 L 96 01/12/24 23:25 60 97 01/12/24 23:23 58 L 97/60 L 01/12/24 23:20 61 96 01/12/24 23:15 64 96 01/12/24 23:10 66 97 01/12/24 23:08 53 L 107/55 L 01/12/24 23:05 52 L 97 01/12/24 23:00 69 99 01/12/24 22:58 18 01/12/24 22:58 36.8 C 18 01/12/24 22:55 59 L 97 01/12/24 22:54 51 L 106/58 L 01/12/24 22:50 58 L 96 01/12/24 22:45 57 L 97 01/12/24 22:40 55 L 97 01/12/24 22:38 59 L 106/55 L 01/12/24 22:35 59 L 97 01/12/24 22:30 56 L 97 01/12/24 22:25 52 L 97 01/12/24 22:23 53 L 102/53 L 01/12/24 22:20 56 L 99 01/12/24 22:15 53 L 99 01/12/24 22:10 75 97 01/12/24 22:09 48 L 139/72 01/12/24 22:05 50 L 100 01/12/24 22:00 55 L 97 01/12/24 21:55 56 L 96 01/12/24 21:54 51 L 102/59 L 01/12/24 21:50 53 L 97 01/12/24 21:45 53 L 98 01/12/24 21:40 54 L 97 01/12/24 21:38 57 L 105/59 L 93 01/12/24 21:35 54 L 96 01/12/24 21:30 57 L 98 01/12/24 21:25 53 L 97 01/12/24 21:23 54 L 114/58 L 01/12/24 21:20 55 L 97 01/12/24 21:15 59 L 99 01/12/24 21:14 18 01/12/24 21:14 37.1 C 18 01/12/24 21:10 56 L 97 01/12/24 21:09 56 L 107/57 L 01/12/24 21:05 56 L 98 01/12/24 21:00 54 L 98 01/12/24 20:55 53 L 97 01/12/24 20:53 53 L 105/59 L 01/12/24 20:50 51 L 97 01/12/24 20:45 53 L 98 01/12/24 20:40 52 L 97 01/12/24 20:38 53 L 102/57 L 01/12/24 20:35 53 L 98 01/12/24 20:30 53 L 98 01/12/24 20:25 55 L 98 01/12/24 20:23 55 L 108/54 L 01/12/24 20:20 52 L 97 01/12/24 20:15 53 L 96 01/12/24 20:10 51 L 97 01/12/24 20:08 54 L 106/59 L 01/12/24 20:05 52 L 97 01/12/24 20:00 54 L 99 01/12/24 19:55 57 L 98 01/12/24 19:53 52 L 107/59 L 01/12/24 19:50 64 97 01/12/24 19:45 55 L 98 01/12/24 19:40 54 L 97 01/12/24 19:39 54 L 107/58 L
[2024-01-13] MEDS: CLINDAMYCIN/D5W 900 MG/50 ML BAG IV SCH (08:10)
[2024-01-13] MEDS ORDERED: Nursing to Pharmacy Communication SCH (09:00)
[2024-01-13] MEDS ORDERED: OXYTOCIN 30 UNITS/NSS 30 UNITS/500 ML BAG IV PRN (10:04)
[2024-01-13] MEDS: LACTATED RINGER'S 1,000 ML IV ONE (10:10)
--- NOTE | 2024-01-13 15:09 | Obstetrical Progress Note ---
Date of Service January 13, 2024 Assessment & Plan Admission and Anticipated Discharge Date Admission Date: January 12, 2024 Subjective Patient is reevaluated She feels well, no complaints, took rest She has not been having regular contractions with good pattern Pitocin was increased over 20 miu/ min in the morning, unable to get 200 MVU ( UIPC in ) Then had one time late decel and it was stopped. It has been categ I Decided to try Oxytocin rest Ffor 1 hour and restarted at 1100 am Now at 16miu/min Ctxs q 203 min but still under 200 MVU VE; 4/ 70%, cervix feels swollen, head is lower, 0 to +1, but cervix has not changed for over many hours VSS Afebrile Discussed the options of Primary Csection for protracted labor, prolonged ROM for over 38 hours Patient desires to try for longer time as long as FHR reassuring Continue to monitor closely Results & Data Vital Signs (Past 12 Hours) Vital Signs Temp Pulse Resp BP Pulse Ox 01/13/24 15:04 57 L 92 01/13/24 15:01 64 99 01/13/24 14:56 61 95 01/13/24 14:54 65 87 L 01/13/24 14:53 71 127/62 01/13/24 14:51 61 96 01/13/24 14:46 70 99 01/13/24 14:41 69 99 01/13/24 14:36 61 98 01/13/24 14:31 62 100 01/13/24 14:30 16 01/13/24 14:30 36.4 C L 16 01/13/24 14:26 54 L 100 01/13/24 14:24 60 89 L 01/13/24 14:23 55 L 106/58 L 01/13/24 14:21 53 L 100 01/13/24 14:16 53 L 100 01/13/24 14:12 61 108/56 L 01/13/24 14:11 63 97 01/13/24 14:06 60 87 L 01/13/24 14:03 73 90 01/13/24 14:01 60 100 01/13/24 13:56 56 L 100 01/13/24 13:54 55 L 107/59 L 01/13/24 13:51 57 L 100 01/13/24 13:46 72 100 01/13/24 13:41 54 L 100 01/13/24 13:38 53 L 110/59 L 01/13/24 13:36 56 L 100 01/13/24 13:32 60 90 01/13/24 13:31 57 L 100 01/13/24 13:26 56 L 100 01/13/24 13:23 59 L 107/53 L 01/13/24 13:21 56 L 100 01/13/24 13:16 55 L 100 01/13/24 13:11 53 L 100 01/13/24 13:10 53 L 105/55 L 01/13/24 13:07 57 L 92 01/13/24 13:06 58 L 100 01/13/24 13:01 60 99 01/13/24 12:59 59 L 94 01/13/24 12:56 63 96 01/13/24 12:53 54 L 101/59 L 01/13/24 12:51 59 L 96 01/13/24 12:46 56 L 96 01/13/24 12:41 55 L 97 01/13/24 12:39 54 L 99/54 L 01/13/24 12:36 55 L 97 01/13/24 12:31 55 L 98 01/13/24 12:30 16 01/13/24 12:30 36.9 C 16 01/13/24 12:26 55 L 97 01/13/24 12:23 55 L 104/55 L 01/13/24 12:21 57 L 99 01/13/24 12:16 59 L 99 01/13/24 12:11 62 98 01/13/24 12:09 74 92 01/13/24 12:08 58 L 104/56 L 01/13/24 12:06 58 L 97 01/13/24 12:01 58 L 96 01/13/24 11:56 58 L 96 01/13/24 11:54 54 L 100/55 L 01/13/24 11:51 54 L 97 01/13/24 11:46 61 98 01/13/24 11:41 58 L 99 01/13/24 11:39 62 108/61 01/13/24 11:36 57 L 100 01/13/24 11:31 57 L 99 01/13/24 11:26 62 98 01/13/24 11:23 58 L 102/55 L 01/13/24 11:21 59 L 98 01/13/24 11:16 56 L 99 01/13/24 11:11 63 99 01/13/24 11:10 57 L 101/59 L 01/13/24 11:06 96 01/13/24 11:06 68 01/13/24 11:06 66 94 01/13/24 11:01 83 99 01/13/24 10:59 16 01/13/24 10:59 36.9 C 16 01/13/24 10:58 69 92 01/13/24 10:56 75 100 01/13/24 10:53 77 125/73 01/13/24 10:51 84 97 01/13/24 10:46 70 96 01/13/24 10:41 74 97 01/13/24 10:39 71 122/72 01/13/24 10:36 68 97 01/13/24 10:31 73 96 01/13/24 10:26 73 97 01/13/24 10:23 75 01/13/24 10:23 123/70 01/13/24 10:23 67 124/69 01/13/24 10:21 73 98 01/13/24 10:18 77 92 01/13/24 10:16 82 98 01/13/24 10:15 16 01/13/24 10:15 37.0 C 16 01/13/24 10:11 69 98 01/13/24 10:08 71 122/80 01/13/24 10:06 76 99 01/13/24 10:04 80 92 01/13/24 10:01 72 98 01/13/24 09:56 80 98 01/13/24 09:54 78 118/78 01/13/24 09:51 72 97 01/13/24 09:46 64 98 01/13/24 09:41 79 96 01/13/24 09:38 81 114/75 01/13/24 09:36 71 98 01/13/24 09:34 77 90 01/13/24 09:31 81 98 01/13/24 09:26 78 98 01/13/24 09:24 76 116/70 01/13/24 09:21 85 98 01/13/24 09:16 100 H 98 01/13/24 09:11 94 H 99 01/13/24 09:08 95 H 117/67 01/13/24 09:06 80 96 01/13/24 09:01 88 97 01/13/24 09:00 16 01/13/24 09:00 36.9 C 16 01/13/24 08:56 104 H 98 01/13/24 08:54 100 H 120/71 01/13/24 08:51 121 H 99 01/13/24 08:46 76 98 01/13/24 08:41 93 H 100 01/13/24 08:39 103 H 131/74 01/13/24 08:36 136 H 100 01/13/24 08:32 73 93 01/13/24 08:31 72 96 01/13/24 08:26 94 H 98 01/13/24 08:23 55 L 112/67 01/13/24 08:21 62 98 01/13/24 08:16 59 L 99 01/13/24 08:11 60 100 01/13/24 08:09 58 L 113/69 01/13/24 08:06 72 99 01/13/24 08:01 68 99 01/13/24 08:00 69 91 01/13/24 07:56 64 99 01/13/24 07:53 76 113/70 01/13/24 07:51 74 99 01/13/24 07:46 69 99 01/13/24 07:41 68 97 01/13/24 07:38 60 115/70 01/13/24 07:36 63 100 01/13/24 07:31 63 99 01/13/24 07:26 63 99 01/13/24 07:23 61 103/55 L 01/13/24 07:21 64 99 01/13/24 07:16 67 98 01/13/24 07:11 61 100 01/13/24 07:09 36.9 C 67 16 105/54 L 01/13/24 07:06 69 95 01/13/24 07:01 58 L 97 01/13/24 06:56 63 97 01/13/24 06:53 57 L 98/57 L 01/13/24 06:51 60 97 01/13/24 06:46 59 L 99 01/13/24 06:41 60 96 01/13/24 06:39 56 L 101/59 L 01/13/24 06:36 66 98 07/26/24 06:31 58 L 97 01/13/24 06:26 59 L 98 01/13/24 06:23 60 107/59 L 01/13/24 06:21 61 98 01/13/24 06:16 60 97 01/13/24 06:11 59 L 97 01/13/24 06:09 60 102/55 L 01/13/24 06:06 57 L 98 01/13/24 06:01 58 L 98 01/13/24 05:56 80 100 01/13/24 05:54 64 116/77 01/13/24 05:51 81 96 01/13/24 05:46 69 98 01/13/24 05:41 62 97 01/13/24 05:39 60 121/64 01/13/24 05:36 70 98 01/13/24 05:31 69 98 01/13/24 05:26 63 97 01/13/24 05:23 70 120/73 01/13/24 05:21 70 98 01/13/24 05:16 71 98 01/13/24 05:11 71 99 01/13/24 05:10 18 01/13/24 05:10 36.9 C 18 01/13/24 05:09 82 133/74 01/13/24 05:06 90 99 01/13/24 05:01 68 98 01/13/24 04:56 62 97 01/13/24 04:55 69 125/74 01/13/24 04:51 60 97 01/13/24 04:46 59 L 98 01/13/24 04:43 65 91 01/13/24 04:41 65 99 01/13/24 04:39 58 L 122/73 01/13/24 04:36 62 96 01/13/24 04:31 57 L 98 01/13/24 04:30 18 01/13/24 04:30 18 01/13/24 04:26 58 L 98 01/13/24 04:23 61 124/75 01/13/24 04:21 60 98 01/13/24 04:16 60 99 01/13/24 04:11 59 L 97 01/13/24 04:08 58 L 120/72 01/13/24 04:06 74 98 01/13/24 04:01 70 99 01/13/24 04:00 64 18 91 01/13/24 03:56 59 L 100 01/13/24 03:53 59 L 113/68 01/13/24 03:51 70 99 01/13/24 03:46 70 99 01/13/24 03:41 72 99 01/13/24 03:38 76 121/72 01/13/24 03:36 74 100 01/13/24 03:32 91 H 93 01/13/24 03:31 93 H 97 01/13/24 03:26 87 100 01/13/24 03:25 69 121/73 01/13/24 03:21 68 99 01/13/24 03:16 63 100 01/13/24 03:11 76 98 01/13/24 03:09 18 01/13/24 03:09 36.8 C 18 01/13/24 03:08 112 H 133/75 01/13/24 03:06 125 H 100
--- NOTE | 2024-01-13 15:27 | Obstetrical Progress Note ---
Date of Service January 13, 2024 Assessment & Plan Admission and Anticipated Discharge Date Admission Date: January 12, 2024 Subjective Patient decided to have Ceserean delivery now Patient understands C section is a major surgery, with risks including but not limited to bleeding , infection, injury to surrounding organs like bowels, bladder, ureters, adhesions, scarring, wound infection, blood cloths in legs/ lungs, longer recovery. All questions were answered. She signed an informed consent. Results & Data Vital Signs (Past 12 Hours) Vital Signs Temp Pulse Resp BP Pulse Ox 01/13/24 15:23 68 112/68 01/13/24 15:21 97 01/13/24 15:21 65 01/13/24 15:21 67 92 01/13/24 15:16 61 97 01/13/24 15:11 96 01/13/24 15:11 59 L 01/13/24 15:11 56 L 91 01/13/24 15:08 57 L 104/64 01/13/24 15:06 67 99 01/13/24 15:04 57 L 92 01/13/24 15:01 64 99 01/13/24 14:56 61 95 01/13/24 14:54 65 87 L 01/13/24 14:53 71 127/62 01/13/24 14:51 61 96 01/13/24 14:46 70 99 01/13/24 14:41 69 99 01/13/24 14:36 61 98 01/13/24 14:31 62 100 01/13/24 14:30 16 01/13/24 14:30 36.4 C L 16 01/13/24 14:26 54 L 100 01/13/24 14:24 60 89 L 01/13/24 14:23 55 L 106/58 L 01/13/24 14:21 53 L 100 01/13/24 14:16 53 L 100 01/13/24 14:12 61 108/56 L 01/13/24 14:11 63 97 01/13/24 14:06 60 87 L 01/13/24 14:03 73 90 01/13/24 14:01 60 100 01/13/24 13:56 56 L 100 01/13/24 13:54 55 L 107/59 L 01/13/24 13:51 57 L 100 01/13/24 13:46 72 100 01/13/24 13:41 54 L 100 01/13/24 13:38 53 L 110/59 L 01/13/24 13:36 56 L 100 01/13/24 13:32 60 90 01/13/24 13:31 57 L 100 01/13/24 13:26 56 L 100 01/13/24 13:23 59 L 107/53 L 01/13/24 13:21 56 L 100 01/13/24 13:16 55 L 100 01/13/24 13:11 53 L 100 01/13/24 13:10 53 L 105/55 L 01/13/24 13:07 57 L 92 01/13/24 13:06 58 L 100 01/13/24 13:01 60 99 01/13/24 12:59 59 L 94 01/13/24 12:56 63 96 01/13/24 12:53 54 L 101/59 L 01/13/24 12:51 59 L 96 01/13/24 12:46 56 L 96 01/13/24 12:41 55 L 97 01/13/24 12:39 54 L 99/54 L 01/13/24 12:36 55 L 97 01/13/24 12:31 55 L 98 01/13/24 12:30 16 01/13/24 12:30 36.9 C 16 01/13/24 12:26 55 L 97 01/13/24 12:23 55 L 104/55 L 01/13/24 12:21 57 L 99 01/13/24 12:16 59 L 99 01/13/24 12:11 62 98 01/13/24 12:09 74 92 01/13/24 12:08 58 L 104/56 L 01/13/24 12:06 58 L 97 01/13/24 12:01 58 L 96 01/13/24 11:56 58 L 96 01/13/24 11:54 54 L 100/55 L 01/13/24 11:51 54 L 97 01/13/24 11:46 61 98 01/13/24 11:41 58 L 99 01/13/24 11:39 62 108/61 01/13/24 11:36 57 L 100 01/13/24 11:31 57 L 99 01/13/24 11:26 62 98 01/13/24 11:23 58 L 102/55 L 07/26/24 11:21 59 L 98 01/13/24 11:16 56 L 99 01/13/24 11:11 63 99 01/13/24 11:10 57 L 101/59 L 01/13/24 11:06 96 01/13/24 11:06 68 01/13/24 11:06 66 94 01/13/24 11:01 83 99 01/13/24 10:59 16 01/13/24 10:59 36.9 C 16 01/13/24 10:58 69 92 01/13/24 10:56 75 100 01/13/24 10:53 77 125/73 01/13/24 10:51 84 97 01/13/24 10:46 70 96 01/13/24 10:41 74 97 01/13/24 10:39 71 122/72 01/13/24 10:36 68 97 01/13/24 10:31 73 96 01/13/24 10:26 73 97 01/13/24 10:23 75 01/13/24 10:23 123/70 01/13/24 10:23 67 124/69 01/13/24 10:21 73 98 01/13/24 10:18 77 92 01/13/24 10:16 82 98 01/13/24 10:15 16 01/13/24 10:15 37.0 C 16 01/13/24 10:11 69 98 01/13/24 10:08 71 122/80 01/13/24 10:06 76 99 01/13/24 10:04 80 92 01/13/24 10:01 72 98 01/13/24 09:56 80 98 01/13/24 09:54 78 118/78 01/13/24 09:51 72 97 01/13/24 09:46 64 98 01/13/24 09:41 79 96 01/13/24 09:38 81 114/75 01/13/24 09:36 71 98 01/13/24 09:34 77 90 01/13/24 09:31 81 98 01/13/24 09:26 78 98 01/13/24 09:24 76 116/70 01/13/24 09:21 85 98 01/13/24 09:16 100 H 98 01/13/24 09:11 94 H 99 01/13/24 09:08 95 H 117/67 01/13/24 09:06 80 96 01/13/24 09:01 88 97 01/13/24 09:00 16 01/13/24 09:00 36.9 C 16 01/13/24 08:56 104 H 98 01/13/24 08:54 100 H 120/71 01/13/24 08:51 121 H 99 01/13/24 08:46 76 98 01/13/24 08:41 93 H 100 01/13/24 08:39 103 H 131/74 01/13/24 08:36 136 H 100 01/13/24 08:32 73 93 01/13/24 08:31 72 96 01/13/24 08:26 94 H 98 01/13/24 08:23 55 L 112/67 01/13/24 08:21 62 98 01/13/24 08:16 59 L 99 01/13/24 08:11 60 100 01/13/24 08:09 58 L 113/69 01/13/24 08:06 72 99 01/13/24 08:01 68 99 01/13/24 08:00 69 91 01/13/24 07:56 64 99 01/13/24 07:53 76 113/70 01/13/24 07:51 74 99 01/13/24 07:46 69 99 01/13/24 07:41 68 97 01/13/24 07:38 60 115/70 01/13/24 07:36 63 100 01/13/24 07:31 63 99 01/13/24 07:26 63 99 01/13/24 07:23 61 103/55 L 01/13/24 07:21 64 99 01/13/24 07:16 67 98 01/13/24 07:11 61 100 01/13/24 07:09 36.9 C 67 16 105/54 L 01/13/24 07:06 69 95 01/13/24 07:01 58 L 97 01/13/24 06:56 63 97 01/13/24 06:53 57 L 98/57 L 01/13/24 06:51 60 97 01/13/24 06:46 59 L 99 01/13/24 06:41 60 96 01/13/24 06:39 56 L 101/59 L 01/13/24 06:36 66 98 01/13/24 06:31 58 L 97 01/13/24 06:26 59 L 98 01/13/24 06:23 60 107/59 L 01/13/24 06:21 61 98 01/13/24 06:16 60 97 01/13/24 06:11 59 L 97 01/13/24 06:09 60 102/55 L 01/13/24 06:06 57 L 98 01/13/24 06:01 58 L 98 01/13/24 05:56 80 100 01/13/24 05:54 64 116/77 01/13/24 05:51 81 96 01/13/24 05:46 69 98 01/13/24 05:41 62 97 01/13/24 05:39 60 121/64 01/13/24 05:36 70 98 01/13/24 05:31 69 98 01/13/24 05:26 63 97 01/13/24 05:23 70 120/73 01/13/24 05:21 70 98 01/13/24 05:16 71 98 01/13/24 05:11 71 99 01/13/24 05:10 18 01/13/24 05:10 36.9 C 18 01/13/24 05:09 82 133/74 01/13/24 05:06 90 99 01/13/24 05:01 68 98 01/13/24 04:56 62 97 01/13/24 04:55 69 125/74 01/13/24 04:51 60 97 01/13/24 04:46 59 L 98 01/13/24 04:43 65 91 01/13/24 04:41 65 99 01/13/24 04:39 58 L 122/73 01/13/24 04:36 62 96 01/13/24 04:31 57 L 98 01/13/24 04:30 18 01/13/24 04:30 18 01/13/24 04:26 58 L 98 01/13/24 04:23 61 124/75 01/13/24 04:21 60 98 01/13/24 04:16 60 99 01/13/24 04:11 59 L 97 01/13/24 04:08 58 L 120/72 01/13/24 04:06 74 98 01/13/24 04:01 70 99 01/13/24 04:00 64 18 91 01/13/24 03:56 59 L 100 01/13/24 03:53 59 L 113/68 01/13/24 03:51 70 99 01/13/24 03:46 70 99 01/13/24 03:41 72 99 01/13/24 03:38 76 121/72 01/13/24 03:36 74 100 01/13/24 03:32 91 H 93 01/13/24 03:31 93 H 97 01/13/24 03:26 87 100
[2024-01-13] MEDS: CITRIC ACID/SODIUM CITRATE 15 ML UDC ONE (15:30)
[2024-01-13 15:38] LABS: Basophils # (auto) 0.03 K/uL (0.00-0.20); Basophils % (auto) 0.2 %; Eosinophils # (auto) 0.04 K/uL (0.00-0.50); Eosinophils % (auto) 0.2 %; Hemoglobin 12.8 g/dl (12.0-16.0); Immature Granulocytes % (auto) 0.6 %; Lymphocytes # (auto) 1.51 K/uL (1.20-3.40); Mean Corpuscular Hemoglobin 29.9 pg (25.0-34.0); Mean Corpuscular Hgb Conc 33.7 g/dL (32.0-36.0); Mean Corpuscular Volume 88.8 fL (80.0-100.0); Mean Platelet Volume 11.2 fL (9.4-12.4); Monocytes # (auto) 1.75 K/uL (0.11-0.59); Monocytes % (auto) 10.5 %; Neutrophils # (auto) 13.27 K/uL (1.40-6.50); Neutrophils % (auto) 79.5 %; Platelet Count 196 K/uL (130-400); RDW Coefficient of Variation 13.4 % (11.5-14.5); RDW Standard Deviation 43.8 fL (36.4-46.3); Red Blood Count 4.28 M/uL (4.20-5.40)
[2024-01-13] MEDS ORDERED: MoRPHine SULFATE PF 1 MG/ML 10 ML AMP/VIAL ONE (15:40)
[2024-01-13] MEDS ORDERED: DEXAMETHASONE SOD INJ 4 MG/ML VIAL ONE (15:40)
[2024-01-13] MEDS ORDERED: OXYTOCIN 10 UNITS/ML VIAL ONE (15:40)
[2024-01-13] MEDS ORDERED: PHENYLEPHRINE 100MCG/ML 10ML SYR IV ONE (15:40)
[2024-01-13] MEDS ORDERED: ONDANSETRON INJ 2 MG/ML 2 ML VIAL ONE (15:40)
[2024-01-13] MEDS: ceFAZolin 2000MG 2,000 MG/15 ML SYR IV SCH (15:44)
[2024-01-13 16:05] LABS: Albumin Globulin Ratio 0.9 (0.9-2); Albumin Level 3.1 gm/dl (3.4-5.0); BUN Creatinine Ratio 6.5 (10-20); Bilirubin,Total 0.6 mg/dl (0.2-1.0); Calcium 8.9 mg/dl (8.6-10.3); Creatinine Clr Calc Pharmacy 55.1 ml/min; Est GFR (African American) 54.2 ml/min; Est GFR (Non-African American) 46.7 ml/min; Globulin 3.3 gm/dl (2.5-4.0); Potassium 4.1 mmol/L (3.5-5.1); Total Protein 6.4 gm/dl (6.0-8.3)
[2024-01-13] MEDS ORDERED: LACTATED RINGER'S 500 ML IV PRN (16:23)
[2024-01-13] MEDS ORDERED: ePHEDrine sulfate 50 MG/ML AMP IV PRN (16:23)
[2024-01-13] MEDS ORDERED: HYDROmorphone INJ 0.5 MG/0.5 ML SYR IV PRN (16:23)
[2024-01-13] MEDS ORDERED: PROMETHAZINE HCL 6.25 MG in SODIUM CHLORIDE 0.9% 50 ML IV PRN (16:23)
[2024-01-13] MEDS ORDERED: ONDANSETRON INJ 2 MG/ML 2 ML VIAL IV PRN (16:23)
[2024-01-13] MEDS ORDERED: NALOXONE HCL 1 MG in SODIUM CHLORIDE 0.9% 1,000 ML IV PRN (16:23)
[2024-01-13] MEDS ORDERED: NALOXONE HCL 0.08 MG in SYRINGE 1.8 ML IV PRN (16:23)
[2024-01-13] MEDS ORDERED: diphenhydrAMINE 50 MG/ML VIAL IV PRN (16:23)
[2024-01-13] MEDS ORDERED: NALOXONE HCL 0.4 MG/1 ML VIAL/CARP IV PRN (16:23)
[2024-01-13] MEDS ORDERED: NALBUPHINE HCL 5 MG in SYRINGE 0 ML IV PRN (16:23)
[2024-01-13] MEDS ORDERED: NO NARCOTICS OR SEDATIVES SCH (16:30)
[2024-01-13] MEDS ORDERED: DC INTRASPINAL MORPHINE SCH (16:30)
[2024-01-13] MEDS ORDERED: KETOROLAC 30 MG/ML VIAL ONE (16:55)
[2024-01-13] MEDS ORDERED: BENZOCAINE 20% SPRY 85 APPLN/85 GM CAN EXT PRN (16:56)
[2024-01-13] MEDS ORDERED: MAGNESIUM HYDROXIDE SUSP 30 ML UDC PO PRN (16:56)
[2024-01-13] MEDS ORDERED: HYDROCORTISONE ACETATE 25 MG SUPP PR PRN (16:56)
[2024-01-13] MEDS ORDERED: SENNA 8.6 MG TAB PO PRN (16:56)
[2024-01-13] MEDS ORDERED: ACETAMINOPHEN 1,000 MG/100 ML VIAL IV PRN (16:59)
--- NOTE | 2024-01-13 17:07 | Anesthesia Procedure Note ---
Date of Service January 13, 2024 Anesthesia Post Epidural Note Vital Signs Vital Signs: Temp Pulse Resp BP Pulse Ox 36.4 C L 60 16 113/50 L 97 01/13/24 14:30 01/13/24 17:02 01/13/24 14:30 01/13/24 17:02 01/13/24 17:01 Pain Intensity Abdomen: Pain Intensity: 0 Notes Mental Status: alert / awake / arousable and participated in evaluation Patient Amnestic to Procedure: No Nausea / Vomiting: adequately controlled Pain: adequately controlled Airway Patency, RR, SpO2: stable & adequate BP & HR: stable & adequate Hydration State: stable & adequate Neuraxial Anesthesia: was administered and sensory block is resolving Anesthetic Complications: no major complications apparent and Pt Satisfied with anesthetic care Epidural: Removed without complications and With tip intact
--- NOTE | 2024-01-13 17:08 | Anesthesiology Progress Note ---
Date of Service January 13, 2024 Anesthesia Post Procedure Vital Signs Vital Signs: Temp Pulse Resp BP Pulse Ox 01/13/24 17:02 60 113/50 L 01/13/24 17:01 70 97 01/13/24 15:49 80 90 01/13/24 15:46 68 123/65 100 01/13/24 15:41 74 100 01/13/24 15:36 72 100 01/13/24 15:32 80 93 01/13/24 15:31 81 99 01/13/24 15:27 81 92 01/13/24 15:26 76 98 01/13/24 15:23 68 112/68 01/13/24 15:21 97 01/13/24 15:21 65 01/13/24 15:21 67 92 01/13/24 15:16 61 97 01/13/24 15:11 96 01/13/24 15:11 59 L 01/13/24 15:11 56 L 91 01/13/24 15:08 57 L 104/64 01/13/24 15:06 67 99 01/13/24 15:04 57 L 92 01/13/24 15:01 64 99 01/13/24 14:56 61 95 01/13/24 14:54 65 87 L 01/13/24 14:53 71 127/62 01/13/24 14:51 61 96 01/13/24 14:46 70 99 01/13/24 14:41 69 99 01/13/24 14:36 61 98 01/13/24 14:31 62 100 01/13/24 14:30 16 01/13/24 14:30 36.4 C L 16 01/13/24 14:26 54 L 100 01/13/24 14:24 60 89 L 01/13/24 14:23 55 L 106/58 L 01/13/24 14:21 53 L 100 01/13/24 14:16 53 L 100 01/13/24 14:12 61 108/56 L 01/13/24 14:11 63 97 01/13/24 14:06 60 87 L 01/13/24 14:03 73 90 01/13/24 14:01 60 100 01/13/24 13:56 56 L 100 01/13/24 13:54 55 L 107/59 L 01/13/24 13:51 57 L 100 01/13/24 13:46 72 100 01/13/24 13:41 54 L 100 01/13/24 13:38 53 L 110/59 L 01/13/24 13:36 56 L 100 01/13/24 13:32 60 90 01/13/24 13:31 57 L 100 01/13/24 13:26 56 L 100 01/13/24 13:23 59 L 107/53 L 01/13/24 13:21 56 L 100 01/13/24 13:16 55 L 100 01/13/24 13:11 53 L 100 01/13/24 13:10 53 L 105/55 L 01/13/24 13:07 57 L 92 01/13/24 13:06 58 L 100 01/13/24 13:01 60 99 01/13/24 12:59 59 L 94 01/13/24 12:56 63 96 01/13/24 12:53 54 L 101/59 L 01/13/24 12:51 59 L 96 01/13/24 12:46 56 L 96 01/13/24 12:41 55 L 97 01/13/24 12:39 54 L 99/54 L 01/13/24 12:36 55 L 97 01/13/24 12:31 55 L 98 01/13/24 12:30 16 01/13/24 12:30 36.9 C 16 01/13/24 12:26 55 L 97 01/13/24 12:23 55 L 104/55 L 01/13/24 12:21 57 L 99 01/13/24 12:16 59 L 99 01/13/24 12:11 62 98 01/13/24 12:09 74 92 01/13/24 12:08 58 L 104/56 L 01/13/24 12:06 58 L 97 01/13/24 12:01 58 L 96 01/13/24 11:56 58 L 96 01/13/24 11:54 54 L 100/55 L 01/13/24 11:51 54 L 97 01/13/24 11:46 61 98 01/13/24 11:41 58 L 99 01/13/24 11:39 62 108/61 01/13/24 11:36 57 L 100 01/13/24 11:31 57 L 99 01/13/24 11:26 62 98 01/13/24 11:23 58 L 102/55 L 01/13/24 11:21 59 L 98 01/13/24 11:16 56 L 99 01/13/24 11:11 63 99 01/13/24 11:10 57 L 101/59 L 01/13/24 11:06 96 01/13/24 11:06 68 01/13/24 11:06 66 94 01/13/24 11:01 83 99 01/13/24 10:59 16 01/13/24 10:59 36.9 C 16 01/13/24 10:58 69 92 01/13/24 10:56 75 100 01/13/24 10:53 77 125/73 01/13/24 10:51 84 97 01/13/24 10:46 70 96 01/13/24 10:41 74 97 01/13/24 10:39 71 122/72 01/13/24 10:36 68 97 01/13/24 10:31 73 96 01/13/24 10:26 73 97 01/13/24 10:23 75 01/13/24 10:23 123/70 01/13/24 10:23 67 124/69 01/13/24 10:21 73 98 01/13/24 10:18 77 92 01/13/24 10:16 82 98 01/13/24 10:15 16 01/13/24 10:15 37.0 C 16 01/13/24 10:11 69 98 01/13/24 10:08 71 122/80 01/13/24 10:06 76 99 01/13/24 10:04 80 92 01/13/24 10:01 72 98 01/13/24 09:56 80 98 01/13/24 09:54 78 118/78 01/13/24 09:51 72 97 01/13/24 09:46 64 98 01/13/24 09:41 79 96 01/13/24 09:38 81 114/75 01/13/24 09:36 71 98 01/13/24 09:34 77 90 01/13/24 09:31 81 98 01/13/24 09:26 78 98 01/13/24 09:24 76 116/70 01/13/24 09:21 85 98 01/13/24 09:16 100 H 98 01/13/24 09:11 94 H 99 01/13/24 09:08 95 H 117/67 01/13/24 09:06 80 96 01/13/24 09:01 88 97 01/13/24 09:00 16 01/13/24 09:00 36.9 C 16 01/13/24 08:56 104 H 98 01/13/24 08:54 100 H 120/71 01/13/24 08:51 121 H 99 01/13/24 08:46 76 98 01/13/24 08:41 93 H 100 01/13/24 08:39 103 H 131/74 01/13/24 08:36 136 H 100 01/13/24 08:32 73 93 01/13/24 08:31 72 96 01/13/24 08:26 94 H 98 01/13/24 08:23 55 L 112/67 01/13/24 08:21 62 98 01/13/24 08:16 59 L 99 01/13/24 08:11 60 100 01/13/24 08:09 58 L 113/69 01/13/24 08:06 72 99 01/13/24 08:01 68 99 01/13/24 08:00 69 91 01/13/24 07:56 64 99 01/13/24 07:53 76 113/70 01/13/24 07:51 74 99 01/13/24 07:46 69 99 01/13/24 07:41 68 97 01/13/24 07:38 60 115/70 01/13/24 07:36 63 100 01/13/24 07:31 63 99 01/13/24 07:26 63 99 01/13/24 07:23 61 103/55 L 01/13/24 07:21 64 99 01/13/24 07:16 67 98 01/13/24 07:11 61 100 01/13/24 07:09 36.9 C 67 16 105/54 L 01/13/24 07:06 69 95 01/13/24 07:01 58 L 97 01/13/24 06:56 63 97 01/13/24 06:53 57 L 98/57 L 01/13/24 06:51 60 97 01/13/24 06:46 59 L 99 01/13/24 06:41 60 96 01/13/24 06:39 56 L 101/59 L 01/13/24 06:36 66 98 01/13/24 06:31 58 L 97 01/13/24 06:26 59 L 98 01/13/24 06:23 60 107/59 L 01/13/24 06:21 61 98 01/13/24 06:16 60 97 01/13/24 06:11 59 L 97 01/13/24 06:09 60 102/55 L 01/13/24 06:06 57 L 98 01/13/24 06:01 58 L 98 01/13/24 05:56 80 100 01/13/24 05:54 64 116/77 01/13/24 05:51 81 96 01/13/24 05:46 69 98 01/13/24 05:41 62 97 01/13/24 05:39 60 121/64 01/13/24 05:36 70 98 01/13/24 05:31 69 98 01/13/24 05:26 63 97 01/13/24 05:23 70 120/73 01/13/24 05:21 70 98 01/13/24 05:16 71 98 01/13/24 05:11 71 99 01/13/24 05:10 18 01/13/24 05:10 36.9 C 18 01/13/24 05:09 82 133/74 01/13/24 05:06 90 99 01/13/24 05:01 68 98 01/13/24 04:56 62 97 01/13/24 04:55 69 125/74 01/13/24 04:51 60 97 01/13/24 04:46 59 L 98 01/13/24 04:43 65 91 01/13/24 04:41 65 99 01/13/24 04:39 58 L 122/73 01/13/24 04:36 62 96 01/13/24 04:31 57 L 98 01/13/24 04:30 18 01/13/24 04:30 18 01/13/24 04:26 58 L 98 01/13/24 04:23 61 124/75 01/13/24 04:21 60 98 01/13/24 04:16 60 99 01/13/24 04:11 59 L 97 01/13/24 04:08 58 L 120/72 01/13/24 04:06 74 98 01/13/24 04:01 70 99 01/13/24 04:00 64 18 91 01/13/24 03:56 59 L 100 01/13/24 03:53 59 L 113/68 01/13/24 03:51 70 99 01/13/24 03:46 70 99 01/13/24 03:41 72 99 01/13/24 03:38 76 121/72 01/13/24 03:36 74 100 01/13/24 03:32 91 H 93 01/13/24 03:31 93 H 97 01/13/24 03:26 87 100 01/13/24 03:25 69 121/73 01/13/24 03:21 68 99 01/13/24 03:16 63 100 01/13/24 03:11 76 98 01/13/24 03:09 18 01/13/24 03:09 36.8 C 18 01/13/24 03:08 112 H 133/75 01/13/24 03:06 125 H 100 01/13/24 03:01 70 98 01/13/24 02:56 63 99 01/13/24 02:53 63 114/73 01/13/24 02:51 64 99 01/13/24 02:46 63 100 01/13/24 02:41 100 01/13/24 02:41 63 01/13/24 02:41 66 94 01/13/24 02:39 58 L 123/68 01/13/24 02:36 80 100 01/13/24 02:31 69 99 01/13/24 02:26 69 100 01/13/24 02:24 72 110/63 01/13/24 02:21 66 100 01/13/24 02:16 68 100 01/13/24 02:11 79 99 01/13/24 02:10 93 H 119/77 01/13/24 02:06 71 100 01/13/24 02:01 89 110/65 99 01/13/24 02:00 76 92 01/13/24 01:56 72 100 01/13/24 01:53 66 94 01/13/24 01:51 54 L 97 01/13/24 01:46 56 L 97 01/13/24 01:41 57 L 97 01/13/24 01:38 54 L 101/59 L 01/13/24 01:36 59 L 97 01/13/24 01:31 57 L 97 01/13/24 01:26 56 L 98 01/13/24 01:23 54 L 107/57 L 01/13/24 01:21 60 97 01/13/24 01:15 56 L 98 01/13/24 01:10 56 L 98 01/13/24 01:08 54 L 109/56 L 01/13/24 01:05 69 98 01/13/24 01:03 18 01/13/24 01:03 36.8 C 18 01/13/24 01:00 64 96 01/13/24 00:55 58 L 97 01/13/24 00:53 70 102/55 L 01/13/24 00:50 56 L 97 01/13/24 00:45 59 L 97 01/13/24 00:40 60 96 01/13/24 00:39 55 L 96/53 L 01/13/24 00:35 63 96 01/13/24 00:30 62 96 01/13/24 00:25 63 96 01/13/24 00:23 56 L 107/57 L 01/13/24 00:20 75 93 01/13/24 00:19 73 93 01/13/24 00:15 61 96 01/13/24 00:10 65 96 01/13/24 00:09 55 L 100/55 L 01/13/24 00:05 61 96 01/13/24 00:00 64 96 01/12/24 23:55 63 96 01/12/24 23:54 63 116/61 01/12/24 23:50 62 96 01/12/24 23:45 56 L 96 01/12/24 23:40 56 L 96 01/12/24 23:38 72 106/63 01/12/24 23:35 55 L 96 01/12/24 23:30 58 L 96 01/12/24 23:25 60 97 01/12/24 23:23 58 L 97/60 L 01/12/24 23:20 61 96 01/12/24 23:15 64 96 01/12/24 23:10 66 97 01/12/24 23:08 53 L 107/55 L 01/12/24 23:05 52 L 97 01/12/24 23:00 69 99 01/12/24 22:58 18 01/12/24 22:58 36.8 C 18 01/12/24 22:55 59 L 97 01/12/24 22:54 51 L 106/58 L 01/12/24 22:50 58 L 96 01/12/24 22:45 57 L 97 01/12/24 22:40 55 L 97 01/12/24 22:38 59 L 106/55 L 01/12/24 22:35 59 L 97 01/12/24 22:30 56 L 97 01/12/24 22:25 52 L 97 01/12/24 22:23 53 L 102/53 L 01/12/24 22:20 56 L 99 01/12/24 22:15 53 L 99 01/12/24 22:10 75 97 01/12/24 22:09 48 L 139/72 01/12/24 22:05 50 L 100 01/12/24 22:00 55 L 97 01/12/24 21:55 56 L 96 01/12/24 21:54 51 L 102/59 L 01/12/24 21:50 53 L 97 01/12/24 21:45 53 L 98 01/12/24 21:40 54 L 97 01/12/24 21:38 57 L 105/59 L 93 01/12/24 21:35 54 L 96 01/12/24 21:30 57 L 98 01/12/24 21:25 53 L 97 01/12/24 21:23 54 L 114/58 L 01/12/24 21:20 55 L 97 01/12/24 21:15 59 L 99 01/12/24 21:14 18 01/12/24 21:14 37.1 C 18 01/12/24 21:10 56 L 97 01/12/24 21:09 56 L 107/57 L 01/12/24 21:05 56 L 98 01/12/24 21:00 54 L 98 01/12/24 20:55 53 L 97 01/12/24 20:53 53 L 105/59 L 01/12/24 20:50 51 L 97 01/12/24 20:45 53 L 98 01/12/24 20:40 52 L 97 01/12/24 20:38 53 L 102/57 L 01/12/24 20:35 53 L 98 01/12/24 20:30 53 L 98 01/12/24 20:25 55 L 98 01/12/24 20:23 55 L 108/54 L 01/12/24 20:20 52 L 97 01/12/24 20:15 53 L 96 01/12/24 20:10 51 L 97 01/12/24 20:08 54 L 106/59 L 01/12/24 20:05 52 L 97 01/12/24 20:00 54 L 99 01/12/24 19:55 57 L 98 01/12/24 19:53 52 L 107/59 L 01/12/24 19:50 64 97 01/12/24 19:45 55 L 98 01/12/24 19:40 54 L 97 01/12/24 19:39 54 L 107/58 L 01/12/24 19:35 56 L 98 01/12/24 19:30 54 L 97 01/12/24 19:25 57 L 98 01/12/24 19:24 59 L 114/58 L 01/12/24 19:20 64 98 01/12/24 19:19 36.6 C 18 01/12/24 19:15 59 L 97 01/12/24 19:10 56 L 97 01/12/24 19:09 55 L 98/52 L 01/12/24 19:05 56 L 98 01/12/24 19:00 64 96 01/12/24 18:55 58 L 96 01/12/24 18:54 52 L 98/55 L 01/12/24 18:50 60 97 01/12/24 18:45 61 96 01/12/24 18:40 62 97 01/12/24 18:38 54 L 103/53 L 01/12/24 18:35 54 L 97 01/12/24 18:30 52 L 98 01/12/24 18:25 79 98 01/12/24 18:23 68 115/61 01/12/24 18:20 58 L 100 01/12/24 18:15 55 L 98 01/12/24 18:10 56 L 97 01/12/24 18:08 55 L 119/56 L 01/12/24 18:05 56 L 98 01/12/24 18:00 59 L 100 01/12/24 17:55 56 L 100 01/12/24 17:53 65 110/52 L 01/12/24 17:51 61 93 01/12/24 17:50 59 L 99 01/12/24 17:45 66 100 01/12/24 17:40 63 100 01/12/24 17:39 65 114/56 L 01/12/24 17:35 66 100 01/12/24 17:30 36.4 C L 72 16 100 01/12/24 17:27 62 105/53 L 01/12/24 17:25 62 100 01/12/24 17:20 64 100 01/12/24 17:17 60 124/54 L 01/12/24 17:15 67 100 01/12/24 17:10 58 L 99 Pain Intensity Abdomen: Pain Intensity: 0 Transfer of Care Handoff Completed per policy Notes Mental Status: alert / awake / arousable and participated in evaluation Patient Amnestic to Procedure: No Nausea / Vomiting: adequately controlled Pain: adequately controlled Airway Patency, RR, SpO2: stable & adequate BP & HR: stable & adequate Hydration State: stable & adequate Neuraxial Anesthesia: was administered and sensory block is resolving Anesthetic Complications: no major complications apparent and Pt Satisfied with anesthetic care
--- NOTE | 2024-01-13 17:15 | Operative Report ---
Post Operative Report Pre & Post Diagnosis Operation Date: 01/13/24 15:30 Pre-Op Diagnosis: prolonged rupture of membranes, Failure to progress despite max dose of Oxytocin I identified the patient and participated in the time-out.: Yes Procedure Operation Date: 01/13/24 15:30 Actual Procedures p Section in LD with result of live female child at 1615(Not Applicable) - Alessandra Murillo MD Surgeon Alessandra Murillo MD Engineering And Operations Director Enedina Bravo RN Quantitative Blood Loss (QBL) 671 ml Findings Consistent with Post-Op Diagnosis Baby was a viable female infant, delivered in cephalic, direct OP( Occiput posterior ) position at 16:15, Apgars 9/9 Weight 3700 gr Maternal findings, normal uterus fallopian tubes and ovaries. Specimens Cord blood, placenta Drains Mora catheter drained 100 mL of clear urine Anesthesia Type Labor Epidural Complications none Disposition Accompanied Patient To Recovery: Yes Indications Patient is a 23-year-old G1, P0 at 41 weeks of gestation who was admitted on January 10 for spontaneous rupture of membranes at 00:45 AM. Her cervix was unfavorable and started on p.o. Cytotec. after 2 doses Cytotec she was started on oxytocin yesterday afternoon. She has been on maximum dose of oxytocin for many hours and unable to pass 4 cm since 10 PM last night. heart rate had been category 1 patient has been afebrile. After discuss ion with the patient prolonged rupture of membranes failure to progress despite oxytocin, suspected LGA recommended section. Patient agreed and signed informed consent.. Description of Procedure Patient was taken to operating room where a spinal anesthesia was given without difficulty. She was placed in dorsal supine position with a leftward tilt. She was prepared and draped in usual sterile fashion. A financial skin incision was made and carried through to the underlying layer of fascia with the Bovie. Fascia was incised in the midline and incision was extended laterally with the help of Hernandez scissors. Then the upper aspect of the fascial incision was grasped with 2 Buddy clamps elevated the underlying rectus muscles were di ssected off sharply with Hernandez scissors. Same thing was done on the lower incision. Then the muscles were in the midline, peritoneum was identified grasped with 2 pickups and entered sharply with Metzenbaum scissors. Peritoneal incision was extended superior and inferiorly with good visualization of the bladder. The bladder blade was inserted. Vesicouterine peritoneum was identified, grasped with pickups and entered sharply with Metzenbaum scissors, bladder flap was created digitally and bladder blade was reinserted. Uterus was incised in transverse fashion, incision was extended laterally, membranes were ruptured and clear fluid was obtained. Baby's head was delivered without difficulty, followed by shoulders and body with minimal traction without faculty. Mouth and nose were suctioned there was dried on the field he was vigorously crying and moving. The cord was clamped times and cut at 1 minute delay and then the was handed off to the pediatric team. Then the placenta was delivered manually as intact and complete. Uterus was externalized and cleared of all clots and debris's. Uterine incision was repaired with 0 Vicryl in a running locked fashion, second umbricating layer was placed with the same suture in running locked fashion. Excellent hemostasis achieved. Cul-de-sac and the pelvis was irrigated with warm normal saline and suctioned. Incision was checked of anesthetic again. Uterus was returned to the abdomen, parietal peritoneum was reapproximated with 3-0 Vicryl in a running fashion and the muscles were reapproximated in the same suture in a running fashion. All of the fascia and rectus muscles were hemostatic. Rectus fascia was reapproximated with 0 Vicryl starting from both columns meeting in the midline. Subcuticular fat tissue was brought together with 2-0 Vicryl in a running fashion, skin was closed with 4-0 Monocryl in a subcuticular cuticular fashion. The mom and baby tolerated procedure well. Sponge needle instrument count was correct x3. she was given 2 g of cefazolin and 900 mg of Clindamycin before surgery. No complications happened, I was present during whole procedure. My furniture removalist's assistant was needed for retraction, hemostasis and aid during delivery of infant I attest to the content of the Intraoperative Record and any orders documented therein. Any exceptions are noted below.
--- NOTE | 2024-01-13 18:15 | Obstetrical Progress Note ---
Date of Service January 13, 2024 Assessment & Plan Admission and Anticipated Discharge Date Admission Date: January 12, 2024 Subjective Patient seen and examined. She feels well, no complaints. Breast-feeding her baby now. Urine output has improved, about 100 mL clear urine in bag in 1 hour. reviewed the labs with elevated creatinine at 1.54 , it was normal in September 2023 as 0.7. Discussed findings with nephrology Physician on-call who recommended hydration with lactated Ringer 125 overnight and repeat in the morning. most likely from dehydration per him. Plan to continue with IV antibiotics for 24 hours and avoid Toradol and Motrin Repeat labs in the morning. Continue to monitor closely. All questions were answered. Results & Data Vital Signs (Past 12 Hours) Vital Signs Temp Pulse Resp BP Pulse Ox 01/13/24 17:42 54 L 111/62 01/13/24 17:41 60 99 01/13/24 17:36 60 98 01/13/24 17:32 63 105/55 L 01/13/24 17:31 65 100 01/13/24 17:26 66 100 01/13/24 17:25 76 94 01/13/24 17:22 60 102/52 L 01/13/24 17:21 63 99 01/13/24 17:20 18 97 01/13/24 17:16 63 99 01/13/24 17:13 65 90 01/13/24 17:12 102/55 L 01/13/24 17:11 63 100 01/13/24 17:10 37.2 C 16 01/13/24 17:06 59 L 99 01/13/24 17:02 60 113/50 L 01/13/24 17:01 70 97 01/13/24 15:49 80 90 01/13/24 15:46 68 123/65 100 01/13/24 15:41 74 100 01/13/24 15:36 72 100 01/13/24 15:32 80 93 01/13/24 15:31 81 99 01/13/24 15:27 81 92 01/13/24 15:26 76 98 01/13/24 15:23 68 112/68 01/13/24 15:21 97 01/13/24 15:21 65 01/13/24 15:21 67 92 01/13/24 15:16 61 97 01/13/24 15:11 96 01/13/24 15:11 59 L 01/13/24 15:11 56 L 91 01/13/24 15:08 57 L 104/64 01/13/24 15:06 67 99 01/13/24 15:04 57 L 92 01/13/24 15:01 64 99 01/13/24 14:56 61 95 01/13/24 14:54 65 87 L 01/13/24 14:53 71 127/62 01/13/24 14:51 61 96 01/13/24 14:46 70 99 01/13/24 14:41 69 99 01/13/24 14:36 61 98 01/13/24 14:31 62 100 01/13/24 14:30 16 01/13/24 14:30 36.4 C L 16 01/13/24 14:26 54 L 100 01/13/24 14:24 60 89 L 01/13/24 14:23 55 L 106/58 L 01/13/24 14:21 53 L 100 01/13/24 14:16 53 L 100 01/13/24 14:12 61 108/56 L 01/13/24 14:11 63 97 01/13/24 14:06 60 87 L 01/13/24 14:03 73 90 01/13/24 14:01 60 100 01/13/24 13:56 56 L 100 01/13/24 13:54 55 L 107/59 L 01/13/24 13:51 57 L 100 01/13/24 13:46 72 100 01/13/24 13:41 54 L 100 01/13/24 13:38 53 L 110/59 L 01/13/24 13:36 56 L 100 01/13/24 13:32 60 90 01/13/24 13:31 57 L 100 01/13/24 13:26 56 L 100 01/13/24 13:23 59 L 107/53 L 01/13/24 13:21 56 L 100 01/13/24 13:16 55 L 100 01/13/24 13:11 53 L 100 01/13/24 13:10 53 L 105/55 L 01/13/24 13:07 57 L 92 01/13/24 13:06 58 L 100 01/13/24 13:01 60 99 01/13/24 12:59 59 L 94 01/13/24 12:56 63 96 01/13/24 12:53 54 L 101/59 L 01/13/24 12:51 59 L 96 01/13/24 12:46 56 L 96 01/13/24 12:41 55 L 97 01/13/24 12:39 54 L 99/54 L 01/13/24 12:36 55 L 97 01/13/24 12:31 55 L 98 01/13/24 12:30 16 01/13/24 12:30 36.9 C 16 01/13/24 12:26 55 L 97 01/13/24 12:23 55 L 104/55 L 01/13/24 12:21 57 L 99 01/13/24 12:16 59 L 99 01/13/24 12:11 62 98 01/13/24 12:09 74 92 01/13/24 12:08 58 L 104/56 L 01/13/24 12:06 58 L 97 01/13/24 12:01 58 L 96 01/13/24 11:56 58 L 96 01/13/24 11:54 54 L 100/55 L 01/13/24 11:51 54 L 97 01/13/24 11:46 61 98 01/13/24 11:41 58 L 99 01/13/24 11:39 62 108/61 01/13/24 11:36 57 L 100 01/13/24 11:31 57 L 99 01/13/24 11:26 62 98 01/13/24 11:23 58 L 102/55 L 01/13/24 11:21 59 L 98 01/13/24 11:16 56 L 99 01/13/24 11:11 63 99 01/13/24 11:10 57 L 101/59 L 01/13/24 11:06 96 01/13/24 11:06 68 01/13/24 11:06 66 94 01/13/24 11:01 83 99 01/13/24 10:59 16 01/13/24 10:59 36.9 C 16 01/13/24 10:58 69 92 01/13/24 10:56 75 100 01/13/24 10:53 77 125/73 01/13/24 10:51 84 97 01/13/24 10:46 70 96 01/13/24 10:41 74 97 01/13/24 10:39 71 122/72 01/13/24 10:36 68 97 01/13/24 10:31 73 96 01/13/24 10:26 73 97 01/13/24 10:23 75 01/13/24 10:23 123/70 01/13/24 10:23 67 124/69 01/13/24 10:21 73 98 01/13/24 10:18 77 92 01/13/24 10:16 82 98 01/13/24 10:15 16 01/13/24 10:15 37.0 C 16 01/13/24 10:11 69 98 01/13/24 10:08 71 122/80 01/13/24 10:06 76 99 01/13/24 10:04 80 92 01/13/24 10:01 72 98 01/13/24 09:56 80 98 01/13/24 09:54 78 118/78 01/13/24 09:51 72 97 01/13/24 09:46 64 98 01/13/24 09:41 79 96 01/13/24 09:38 81 114/75 01/13/24 09:36 71 98 01/13/24 09:34 77 90 01/13/24 09:31 81 98 01/13/24 09:26 78 98 01/13/24 09:24 76 116/70 01/13/24 09:21 85 98 01/13/24 09:16 100 H 98 01/13/24 09:11 94 H 99 01/13/24 09:08 95 H 117/67 01/13/24 09:06 80 96 01/13/24 09:01 88 97 01/13/24 09:00 16 01/13/24 09:00 36.9 C 16 01/13/24 08:56 104 H 98 01/13/24 08:54 100 H 120/71 01/13/24 08:51 121 H 99 01/13/24 08:46 76 98 01/13/24 08:41 93 H 100 01/13/24 08:39 103 H 131/74 01/13/24 08:36 136 H 100 01/13/24 08:32 73 93 01/13/24 08:31 72 96 01/13/24 08:26 94 H 98 01/13/24 08:23 55 L 112/67 01/13/24 08:21 62 98 01/13/24 08:16 59 L 99 01/13/24 08:11 60 100 01/13/24 08:09 58 L 113/69 01/13/24 08:06 72 99 01/13/24 08:01 68 99 01/13/24 08:00 69 91 01/13/24 07:56 64 99 01/13/24 07:53 76 113/70 01/13/24 07:51 74 99 01/13/24 07:46 69 99 01/13/24 07:41 68 97 01/13/24 07:38 60 115/70 01/13/24 07:36 63 100 01/13/24 07:31 63 99 01/13/24 07:26 63 99 01/13/24 07:23 61 103/55 L 01/13/24 07:21 64 99 01/13/24 07:16 67 98 01/13/24 07:11 61 100 01/13/24 07:09 36.9 C 67 16 105/54 L 01/13/24 07:06 69 95 01/13/24 07:01 58 L 97 01/13/24 06:56 63 97 01/13/24 06:53 57 L 98/57 L 01/13/24 06:51 60 97 01/13/24 06:46 59 L 99 01/13/24 06:41 60 96 01/13/24 06:39 56 L 101/59 L 01/13/24 06:36 66 98 01/13/24 06:31 58 L 97 01/13/24 06:26 59 L 98 01/13/24 06:23 60 107/59 L 01/13/24 06:21 61 98 01/13/24 06:16 60 97 01/13/24 06:11 59 L 97 01/13/24 06:09 60 102/55 L 01/13/24 06:06 57 L 98 01/13/24 06:01 58 L 98 01/13/24 05:56 80 100 01/13/24 05:54 64 116/77 01/13/24 05:51 81 96 01/13/24 05:46 69 98
[2024-01-13] MEDS: OXYTOCIN 30 UNITS in D5W AND LACTATED RINGERS 1,000 ML IV SCH (18:51)
[2024-01-13] MEDS: SIMETHICONE 80 MG CHEW PO SCH (21:51)
[2024-01-13] MEDS: SODIUM CHLORIDE 0.9% 1,000 ML IV SCH (21:52)
[2024-01-13] MEDS: LACTATED RINGER'S 1,000 ML IV SCH (21:52)
[2024-01-13] MEDS: CITRIC ACID/SODIUM CITRATE 15 ML UDC PO STA (21:53)
[2024-01-13] MEDS: DOCUSATE SODIUM 100 MG CAP PO SCH (22:58)
[2024-01-14] MEDS: fentaNYL citrate PF 100 MCG/2 ML VIAL EPI STA (00:16)
[2024-01-14] MEDS: LIDOCAINE 2%/EPINEPHRINE 1:200,000 20 ML PF EPI STA (00:16)
[2024-01-14] MEDS: ePHEDrine sulfate 50 MG/ML AMP ONE (00:16)
[2024-01-14] MEDS: BUPIVACAINE 0.25% PF 30 ML VIAL EPI STA (00:16)
[2024-01-14] MEDS: SODIUM CHLORIDE 0.9% PF INJ 10 ML VIAL EPI STA (00:17)
[2024-01-14] MEDS: MEASLES, MUMPS & RUBELLA VIRUS VACCINE (MMR) 0.5ML VIAL SQ ONE (00:17)
[2024-01-14] MEDS: MoRPHine SULFATE PF 1 MG/ML 10 ML AMP/VIAL EPI ONE (00:17)
[2024-01-14] MEDS: DIPHTHER/TETAN/PERTUS Vaccine (Tdap, Adol/Adult) 0.5mL IM ONE (00:17)
[2024-01-14] MEDS: GELATIN SPONGE SZ 100 ONE (00:18)
[2024-01-14] MEDS: OXYTOCIN 20 UNITS/LR 1,002 ML IV SCH (02:58)
[2024-01-14 06:56] LABS: Basophils # (auto) 0.03 K/uL (0.00-0.20); Basophils % (auto) 0.2 %; Eosinophils # (auto) 0.03 K/uL (0.00-0.50); Eosinophils % (auto) 0.2 %; Hematocrit (blood only) 30.2 % (37.0-47.0); Hemoglobin 10.4 g/dl (12.0-16.0); Immature Granulocytes # (auto) 0.11 K/uL (0.01-0.20); Immature Granulocytes % (auto) 0.6 %; Lymphocytes # (auto) 1.68 K/uL (1.20-3.40); Lymphocytes % (auto) 9.7 %; Mean Corpuscular Hemoglobin 30.3 pg (25.0-34.0); Mean Corpuscular Hgb Conc 34.4 g/dL (32.0-36.0); Mean Platelet Volume 11.2 fL (9.4-12.4); Monocytes % (auto) 11.5 %; Neutrophils # (auto) 13.51 K/uL (1.40-6.50); Neutrophils % (auto) 77.8 %; Platelet Count 164 K/uL (130-400); RDW Coefficient of Variation 13.3 % (11.5-14.5); RDW Standard Deviation 42.7 fL (36.4-46.3); Red Blood Count 3.43 M/uL (4.20-5.40); White Blood Count 17.36 K/ul (4.8-10.8)
[2024-01-14] MEDS: PRENATAL VITAMIN 1 TAB PO SCH (07:17)
[2024-01-14] MEDS: FERROUS SULFATE 325 MG TAB PO SCH (07:18)
[2024-01-14 07:38] LABS: Albumin Globulin Ratio 1.1 (0.9-2); Albumin Level 2.7 gm/dl (3.4-5.0); BUN Creatinine Ratio 9.3 (10-20); Bilirubin,Total 0.4 mg/dl (0.2-1.0); Calcium 8.5 mg/dl (8.6-10.3); Creatinine Clr Calc Pharmacy 87.5 ml/min; Est GFR (African American) 94.7 ml/min; Est GFR (Non-African American) 81.7 ml/min; Globulin 2.5 gm/dl (2.5-4.0); Potassium 4.2 mmol/L (3.5-5.1); Total Protein 5.2 gm/dl (6.0-8.3)
[2024-01-14] MEDS: KETOROLAC 30 MG/ML VIAL IV PRN (09:12)
--- NOTE | 2024-01-14 09:38 | Obstetrical Progress Note ---
Date of Service January 14, 2024 Assessment & Plan Admission and Anticipated Discharge Date Admission Date: January 12, 2024 OB Progress Note abdomen soft and non tender bowel sounds present bandage is clean and dry no calf tenderness vaginal bleeding scant hgb 10.4 Results & Data Vital Signs (Past 12 Hours) Vital Signs Temp Pulse Resp BP Pulse Ox O2 Del Method 01/14/24 07:15 16 100 01/14/24 07:15 36.8 C 71 16 103/67 100 Room Air 01/14/24 06:00 16 94 01/14/24 05:00 16 95 01/14/24 04:00 16 96 01/14/24 02:56 36.8 C 62 16 95/61 L 98 Room Air 01/14/24 02:00 18 96 01/14/24 01:00 18 94 01/14/24 00:00 18 95 01/13/24 21:39 36.7 C 57 L 18 120/70 98 Room Air
[2024-01-14] MEDS ORDERED: diphenhydrAMINE 50 MG/ML VIAL IV PRN (10:23)
[2024-01-14] MEDS ORDERED: ONDANSETRON INJ 2 MG/ML 2 ML VIAL IV PRN (10:23)
[2024-01-14] MEDS ORDERED: MEPERIDINE HCL 50 MG/ML CARP IV PRN (10:23)
[2024-01-14] MEDS ORDERED: PROMETHAZINE HCL 25 MG in SODIUM CHLORIDE 0.9% 50 ML IV PRN (10:23)
[2024-01-14] MEDS ORDERED: diphenhydrAMINE Capsule 25 MG CAP PO PRN (10:23)
[2024-01-14] MEDS: oxyCODONE/ACETAMINOPHEN 5mg/325mg TAB PO PRN (15:14)
[2024-01-14] MEDS: bisacodyL 5 MG TABEC PO SCH (20:39)
[2024-01-15 07:09] LABS: Basophils # (auto) 0.03 K/uL (0.00-0.20); Basophils % (auto) 0.2 %; Eosinophils # (auto) 0.21 K/uL (0.00-0.50); Eosinophils % (auto) 1.6 %; Hematocrit (blood only) 25.6 % (37.0-47.0); Hemoglobin 8.9 g/dl (12.0-16.0); Immature Granulocytes # (auto) 0.12 K/uL (0.01-0.20); Immature Granulocytes % (auto) 0.9 %; Lymphocytes # (auto) 2.26 K/uL (1.20-3.40); Mean Corpuscular Hemoglobin 30.2 pg (25.0-34.0); Mean Corpuscular Hgb Conc 34.8 g/dL (32.0-36.0); Mean Corpuscular Volume 86.8 fL (80.0-100.0); Mean Platelet Volume 10.9 fL (9.4-12.4); Monocytes # (auto) 1.29 K/uL (0.11-0.59); Monocytes % (auto) 9.7 %; Neutrophils % (auto) 70.6 %; Platelet Count 180 K/uL (130-400); RDW Coefficient of Variation 13.6 % (11.5-14.5); RDW Standard Deviation 43.1 fL (36.4-46.3); Red Blood Count 2.95 M/uL (4.20-5.40); White Blood Count 13.31 K/ul (4.8-10.8)
[2024-01-15 07:44] LABS: Albumin Level 2.9 gm/dl (3.4-5.0); BUN Creatinine Ratio 13.9 (10-20); Bilirubin,Total 0.3 mg/dl (0.2-1.0); Calcium 8.6 mg/dl (8.6-10.3); Creatinine Clr Calc Pharmacy 117.9 ml/min; Est GFR (African American) 135.9 ml/min; Est GFR (Non-African American) 117.2 ml/min; Globulin 2.8 gm/dl (2.5-4.0); Potassium 3.8 mmol/L (3.5-5.1); Total Protein 5.7 gm/dl (6.0-8.3)
--- NOTE | 2024-01-15 10:03 | Obstetrical Progress Note ---
Date of Service January 15, 2024 Assessment & Plan Admission and Anticipated Discharge Date Admission Date: January 12, 2024 OB Progress Note abdomen soft and non tender incision is clean and dry no calf tenderness ambulating well vaginal bleeding scant hgb 8.9 Results & Data Vital Signs (Past 12 Hours) Vital Signs Temp Pulse Pulse Resp BP BP Pulse Ox 01/15/24 08:00 36.4 C L 84 20 107/64 98 01/15/24 03:02 36.4 C L 83 16 104/64 01/15/24 00:08 36.8 C 72 17 106/66 O2 Del Method 01/15/24 08:00 Room Air 01/15/24 03:02 01/15/24 00:08
--- NOTE | 2024-01-15 10:08 | Discharge Summary ---
Date of Service January 15, 2024 Admission HPI Per Admitting Provider Patient is a 23-year-old G1, P0 at 40 weeks and 6 days of gestation who woke up at 00 40 5 AM with a gush of leakage of fluid. It has been clear and she has been leaking more over time. She denies vaginal bleeding, contractions, abdominal pain, fever chills, nausea vomiting. She reports good movements. She has been feeling irregular bruxing contractions but they are not painful. Her has been uncomplicated except GBS positive, had COVID 19 around 35 weeks, recovered well with no complications. Discharge Data Consultations 01/12/24 02:16 Consult Anesthesiology Stat Procedures Performed Operation Date: 01/13/24 15:30 Actual Procedures p Section in LD with result of live female child at 1615(Not Applicable) - Alessandra Murillo MD Hospital Course (1) Delivery by section using low vertical uterine incision: (2) Prolonged artificial rupture of membranes: Plan Patient is a 1 para 1 underwent primary low segment section. Hospital course was complicated by prolonged rupture of membranes. She was beta strep positive. She was given a postoperative extended course of antibiotics to cover the prolonged rupture of membranes. Patient did very well. Patient remained afebrile throughout her postoperative course. At time of discharge she was ambulating well eating well vaginal bleeding was minimal.
[2024-01-15] MEDS ORDERED: bisacodyL 10 MG SUPP PR PRN (16:56)
== END 2024-01-15 13:00 | disposition home or self-care (01) | DRG 788 ==
LOC: 4S1 01:58 → 4E2 01-13 21:44